=== PATIENT | female | born 1960 | race African-American/Black ===

== ENCOUNTER → 2016-04-03 | Day surgery (SDC) | payer OTHER, MEDICAID ==
[~2016-04-03] MED LIST: ALPR0.5T6 PO; AMIT150T PO; ASEN10TA9 SL; BUDE10.2 IH; CANA300T PO; CELE100C PO; CELE200C PO; CYCL10TA2 PO; DIAZ5TAB4 PO; DULO60CA44 PO; ESCI20TA PO; ESZO3TAB9 PO; FENTANYL PF 100 MCG/2 ML VIAL. IV PRN; FERR-26 PO; FERR325T3 PO; FOLI1TAB16 PO; HYDROMORPHONE 2 MG/ML VIAL. IV PRN; IV RINGERS,LACTATED 1000ML 1,000 ML IV SCH; LIDOCAINE 1% 1 ML SYRINGE. ID PRN; LIDOCAINE 2% PF Vial for OR 5 ML VIAL. ONE; LINA290C PO; LORA1TAB PO; METF500T4 PO; METH2.5T25 PO; MIRT15TA3; MORPHINE SULFATE 2 MG/ML DISP.SYRIN. IV PRN; NAPR1TAB21 PO; OXYC10TA PO; Oxycodone Hcl/Acetaminophen PO; PRAV40TA2 PO; PRED20TA PO; PROPOFOL 20 ML IV ONE; Warfarin Sodium MC; ZOLP10TA4 PO
[2016-04-03 08:58] VITALS: BP 107/77
== END ==
LOC: ENDOS 07:20
PROVIDERS: ATTEND Internal Medicine Gastroenterology
DX: K22.2 Esophageal obstruction (principal); K29.50 Unspecified chronic gastritis without bleeding; K21.9 Gastro-esophageal reflux disease without esophagitis; E66.9 Obesity, unspecified; E78.00 Pure hypercholesterolemia, unspecified; J45.909 Unspecified asthma, uncomplicated; J44.9 Chronic obstructive pulmonary disease, unspecified; M19.90 Unspecified osteoarthritis, unspecified site; E11.9 Type 2 diabetes mellitus without complications; F32.9 Major depressive disorder, single episode, unspecified; F17.200 Nicotine dependence, unspecified, uncomplicated; F41.9 Anxiety disorder, unspecified; Z72.89 Other problems related to lifestyle; Z90.49 Acquired absence of other specified parts of digestive tract
CPT/HCPCS: 43235; 43450; J2704

== ENCOUNTER → 2016-04-13 | Outpatient (CLI) | payer OTHER, MEDICAID ==
[2016-04-03 07:49] VITALS: BP_SYST 107
[2016-04-03 08:58] VITALS: BP_DIAS 77
[~2016-04-13] MED LIST changes: -FENTANYL PF 100 MCG/2 ML VIAL. IV PRN; -HYDROMORPHONE 2 MG/ML VIAL. IV PRN; -IV RINGERS,LACTATED 1000ML 1,000 ML IV SCH; -LIDOCAINE 1% 1 ML SYRINGE. ID PRN; -LIDOCAINE 2% PF Vial for OR 5 ML VIAL. ONE; -MORPHINE SULFATE 2 MG/ML DISP.SYRIN. IV PRN; -PROPOFOL 20 ML IV ONE
--- NOTE | 2016-04-13 15:42 | RAD ---
DATE: 04/03/16 EXAM: DIGITAL SCREEN BILAT W/CAD HISTORY: Routine screening COMPARISON: 04/12/15 This study was interpreted with the benefit of Computerized Aided Detection (CAD). TECHNIQUE: Routine CC and MLO views of both breasts are obtained FINDINGS: The breast tissue density is [B ] . Scattered fibroglandular densities are seen bilaterally. There are no dominant suspicious masses, suspicious microcalcifications or evidence of architectural distortion. Skin and nipples are intact IMPRESSION: Negative exam BI-RADS CATEGORY: 1 NEGATIVE RECOMMENDED FOLLOW-UP: 12M 12 MONTH FOLLOW-UP PQRS compliance statement: Patient information was entered into a reminder system with a target due date for the next mammogram. Mammography is a sensitive method for finding small breast cancers, but it does not detect them all and is not a substitute for careful clinical examination. A negative mammogram does not negate a clinically suspicious finding and should not result in delay in biopsying a clinically suspicious abnormality. "Our facility is accredited by the [employer] Mammography Program."
== END | disposition home or self-care (01) ==
LOC: MAMMO 09:59
PROVIDERS: ATTEND Family Medicine
DX: Z12.31 Encounter for screening mammogram for malignant neoplasm of breast (principal)
CPT/HCPCS: G0202; 77067

== ENCOUNTER → 2016-08-11 | Outpatient (CLI) | payer BC, MEDICAID ==
[2016-04-03 08:58] VITALS: BP 107/77
[~2016-08-11] MED LIST changes: +REGADENOSON 0.4 MG/5 ML DISP.SYRIN. IV ONE
--- NOTE | 2016-08-12 15:34 | RAD ---
APPROVED REPORT Test Type: Pharmacological Stress Nurse/Tech: rachel bhakta Test Indications: CHEST PAIN Cardiac History: HTN, HIGH CHOLESTEROL, SEE EHR Medications: SEE EHR Medical History: DIABETES, SMOKER, SEE EHR Resting ECG: SR Resting Heart Rate: 65 bpm Resting Blood Pressure: 109/55mmHg Pretest Chest Pain: No chest pain Nurse/Tech Notes LUNG SOUNDS CLEAR, S1S2 WNL. Consent: The procedure was explained to the patient in lay terms. Informed consent was witnessed. Freddie eout was entered into [employer]. History and Stress Test performed by OTTO Gabriel, CHRISTIAN (R) (N) Pharm. Details Pharmacologic stress testing was performed using 0.4mg per 5ml of regadenoson given intravenously ove r 7-10 seconds. Stress Symptoms HEADACHE POST EXERCISE Reason for Termination: Infusion complete Max HR: 93 bpm Max Blood Pressure: 125/55mmHg Chest Pain: No. Arrhythmia: No. ST Change: No. INTERPRETATION Stress EKG Conclusion: The resting EKG shows a sinus rhythm with minimal nonspecific ST segment arriola es The stress EKG shows no significant changes from baseline. No EKG evidence of stress-induced ischemia. Imaging Protocol IMAGE PROTOCOL: Rest Tc-99m/stress Tc-99m 1 day Rest: Stress: Viability: Radiopharm.Tc99m [id number] Sestamibi [id number] 31mCi Duration 15min. 10min. Img Date 08/11/2016 08/11/2016 Inj-Img [id number]. 60min. Rest Admin Site:IV - Right AntecubitalAdministrator:RT Karan (R)(N) Stress Admin Site: IV - Right AntecubitalAdministrator: OTTO Gabriel, ARRT (R)(N) STRESS DATA End Diast. Vol.56.0mlAv. Heart Rate91.0bpm End Syst. Vol.3.0mlCO Index BSA0.0L/min Myocardial Gkbs955.0gEject. Yljgbugx45.0% Stress Rates Pk. Fill Rate4.33EDV/secLVtime Pk. Fill 173.73msec Pk. Empty Rate6.38ESV/secLVtime Pk. Eject77.27msec 03/17 Pk. Fill1.10EDV/sec Stress Scores Regional WT0.00Summed WT0.00 Regional WM0.00Summed WM0.00 LV Perfusion The stress scans showed no significant defects. The rest scans showed no significant defects. Nuclear imaging shows no reversible ischemia or infarct. Wall Motion Left ventricular systolic function is normal with an ejection fraction of greater than 70%. LV Perf. Quant 17 Seg. SSS0.00 17 Seg. SRS0.00 17 Seg. SDS0.00 Stress Defect Extent (% LAD)0.00Rest Defect Extent (% LAD)0.00Rev. Defect Extent (% LAD)0.00 Stress Defect Extent (% LCX) 0.00Rest Defect Extent (% LCX)0.00Rev. Defect Extent (% LCX)0.00 Stress Defect Extent (% RCA)0.00Rest Defect Extent (% RCA)0.00Rev. Defect Extent (% RCA)0.00 Stress Defect Extent (% AZAEL)0.00Rest Defect Extent (% AZAEL)0.00Rev. Defect Extent (% AZAEL)0.00 Conclusion 1. No EKG evidence of stress-induced ischemia. 2. Nuclear imaging shows no reversible ischemia or infarct. 3. Normal left ventricular systolic function with an ejection fraction of greater than 70%. 4. Low risk Lexiscan nuclear stress test.
== END | disposition home or self-care (01) ==
LOC: NM 09:44
PROVIDERS: ATTEND Internal Medicine Cardiovascular Disease
DX: R06.00 Dyspnea, unspecified (principal); R07.9 Chest pain, unspecified
CPT/HCPCS: 78452; 93017; 96374; 96375; 96376; A9500; J2785

== ENCOUNTER → 2016-08-20 | Outpatient (CLI) | payer BC, MEDICAID ==
[2016-04-03 08:58] VITALS: BP 107/77
[~2016-08-20] MED LIST changes: -REGADENOSON 0.4 MG/5 ML DISP.SYRIN. IV ONE
--- NOTE | 2016-08-20 12:26 | RAD ---
CT of the paranasal sinuses without contrast, 08/20/2016: History: Chronic sinus pain Noncontrast scans were obtained with multiplanar reconstructions produced. There is a focal density along the anterior inferior aspect of the left maxillary sinus compatible with a retention cyst. No fluid is evident in the paranasal sinuses. The orbital contents are unremarkable. No bony abnormality is detected. IMPRESSION: 1. Small retention cyst along the floor of the left maxillary sinus. 2. No other significant paranasal sinus abnormality is detected. PQRS Compliance Statement: One or more of the following individualized dose reduction techniques were utilized for this examination: 1. Automated exposure control 2. Adjustment of the mA and/or kV according to patient size 3. Use of iterative reconstruction technique
== END | disposition home or self-care (01) ==
LOC: CT 09:58
PROVIDERS: ATTEND Family Medicine
DX: J34.89 Other specified disorders of nose and nasal sinuses (principal)
CPT/HCPCS: 70486

== ENCOUNTER → 2016-09-23 | Outpatient (CLI) | payer BC, MEDICAID ==
[2016-04-03 08:58] VITALS: BP 107/77
[~2016-09-23] MED LIST changes: -ESCI20TA PO; +ESCITALOPRAM OX20 MG PO; +ESZO3TAB28 PO; -ESZO3TAB9 PO
--- NOTE | 2016-09-23 12:21 | RAD ---
MRI of the brain without contrast 09/23/2016 Clinical History: Worsening headaches for 3 months. Technique: Unenhanced T1-weighted sagittal and axial, T2-weighted axial and coronal and FLAIR, gradient echo and diffusion-weighted axial images of the brain were obtained. Findings: No previous imaging studies are available for comparison. There is mild generalized parenchymal atrophy. Patchy and several small scattered areas of increased signal intensity are seen within the periventricular and subcortical white matter of both cerebral hemispheres on the FLAIR and T2-weighted images consistent most likely with areas of mild small vessel ischemic disease. No acute parenchymal abnormality is seen. No extra-axial fluid collection is seen. There is no MRI evidence of acute ischemia/infarction. A 1.6 cm mucous retention cyst is seen involving the left maxillary sinus. Normal flow voids are seen within the major vascular structures surrounding the brain parenchyma. Impression: No acute parenchymal abnormality is seen. Electronically signed by: Stephan Florez MD (09/23/2016 12:17 PM) [email or web address]
== END | disposition home or self-care (01) ==
LOC: MRI 10:06
PROVIDERS: ATTEND Family Medicine
DX: R51 Headache (principal)
CPT/HCPCS: 70551

== ENCOUNTER → 2016-10-08 | Outpatient (CLI) | payer BC, MEDICAID ==
[2016-04-03 08:58] VITALS: BP 107/77
[2016-10-08 12:57] LABS: BASO # 0.1 x10^3/uL (0.0-0.2); BASO % 1 % (0-3); EOS % 1 % (0-3); HEMATOCRIT 43.7 % (36.0-47.0); HEMOGLOBIN 14.2 g/dL (12.0-15.5); LYMPH # 4.6 x10^3/uL (1.0-4.8); LYMPH % 47 % (24-48); MEAN CORPUSCULAR HEMOGLOBIN 28 pg (25-35); MEAN CORPUSCULAR HGB CONC 33 g/dL (31-37); MEAN CORPUSCULAR VOLUME 86 fL (79-100); MONO % 6 % (0-9); NEUT % 46 % (31-73); PLATELET COUNT 259 x10^3/uL (140-400); RED BLOOD COUNT 5.07 x10^6/uL (3.50-5.40); RED CELL DISTRIBUTION WIDTH 13.7 % (11.5-14.5); WHITE BLOOD COUNT 9.9 x10^3/uL (4.0-11.0)
== END | disposition home or self-care (01) ==
LOC: LAB 12:27
PROVIDERS: ATTEND Psychiatry & Neurology Neurology
DX: R51 Headache (principal)
CPT/HCPCS: 36415; 85027; 85651

== ENCOUNTER → 2017-02-12 | Outpatient (CLI) | payer BC, MEDICAID ==
[2016-04-03 08:58] VITALS: BP 107/77
--- NOTE | 2017-02-12 10:48 | KCIC ---
Five-view lumbar spine dated 02/12/2017. No comparison available. Clinical indication: Low back pain and left hip pain for 3 weeks. FINDINGS: AP, lateral, bilateral oblique and coned-down views of lumbosacral sacral junction.. 5 nonrib-bearing vertebral levels. Vertebral body and disc heights are maintained. Sagittal alignment is anatomic. There is mild hypertrophic change of the superior and inferior endplates throughout. Moderate arthrosis lower lumbar apophyseal joints. No pars defects on the oblique views. IMPRESSION: 1. No acute radiographic abnormality. 2. Mild to moderate lower lumbar spondylosis. Electronically signed by: Todd Bishop MD (02/12/2017 10:44 AM) [facility]
== END | disposition home or self-care (01) ==
LOC: KCIC 09:58
PROVIDERS: ATTEND Family Medicine
DX: M54.16 Radiculopathy, lumbar region (principal); M47.896 Other spondylosis, lumbar region; M25.552 Pain in left hip
CPT/HCPCS: 72110

== ENCOUNTER → 2017-04-19 | Outpatient (CLI) | payer BC, MEDICAID | END | disposition home or self-care (01) | LOC: MAMMO 12:37 | DX: Z12.31 Encounter for screening mammogram for malignant neoplasm of breast (principal); N64.89 Other specified disorders of breast | CPT/HCPCS: 77067 ==

== ENCOUNTER → 2017-05-04 | Outpatient (CLI) | payer BC, MEDICAID | END | disposition home or self-care (01) | LOC: MAMMO 09:05 | DX: R92.8 Other abnormal and inconclusive findings on diagnostic imaging of breast (principal); N64.89 Other specified disorders of breast | CPT/HCPCS: 77065 ==

== ENCOUNTER → 2017-06-11 | Outpatient (CLI) | payer BC, MEDICAID ==
[2017-06-11 15:05] LABS: ANION GAP 8 (6-14); BLOOD UREA NITROGEN 12 mg/dL (7-20); CARBON DIOXIDE 31 mmol/L (21-32); CHLORIDE 103 mmol/L (98-107); GFR 69.7; POTASSIUM 3.2 mmol/L (3.5-5.1); SODIUM 142 mmol/L (136-145)
== END | disposition home or self-care (01) ==
LOC: LAB 14:41
DX: G43.019 Migraine without aura, intractable, without status migrainosus (principal)
CPT/HCPCS: 36415; 80051; 82565; 84520

== ENCOUNTER → 2017-06-28 | Outpatient (CLI) | payer BC, MEDICAID ==
[2017-06-28 10:55] LABS: ALBUMIN/GLOBULIN RATIO 0.8 (1.0-1.7); ALK PHOS 106 U/L (46-116); ALT (SGPT) 32 U/L (14-59); ANION GAP 8 (6-14); AST (SGOT) 23 U/L (15-37); BLOOD UREA NITROGEN 16 mg/dL (7-20); BUN/CREATININE RATIO 18 (6-20); CARBON DIOXIDE 32 mmol/L (21-32); CHLORIDE 102 mmol/L (98-107); CREATINE KINASE 128 U/L (26-192); CREATININE 0.9 mg/dL (0.6-1.0); GFR 78.7; GLUCOSE 132 mg/dL (70-99); POTASSIUM 3.3 mmol/L (3.5-5.1); SODIUM 142 mmol/L (136-145); TOTAL BILIRUBIN 0.4 mg/dL (0.2-1.0); TOTAL PROTEIN 8.8 g/dL (6.4-8.2)
[2017-06-28 11:15] LABS: FREE T4 0.85 ng/dL (0.76-1.46)
[2017-06-28 11:15] LABS: THYROID STIM HORMONE (TSH) 0.784 uIU/mL (0.358-3.74)
[2017-06-28 11:47] LABS: VITAMIN-B12 463 pg/mL (247-911)
== END | disposition home or self-care (01) ==
LOC: LAB 10:03
DX: R41.3 Other amnesia (principal); E11.9 Type 2 diabetes mellitus without complications; E78.00 Pure hypercholesterolemia, unspecified; I10 Essential (primary) hypertension
CPT/HCPCS: 36415; 80053; 82306; 82550; 82607; 84439; 84443

== ENCOUNTER → 2017-07-02 | Outpatient (CLI) | payer BC, MEDICAID | END | disposition home or self-care (01) | LOC: RAD 09:16 | DX: M17.0 Bilateral primary osteoarthritis of knee (principal) | CPT/HCPCS: 73565 ==

== ENCOUNTER → 2017-07-09 | Outpatient (CLI) | payer BC, MEDICAID | END | disposition home or self-care (01) | LOC: RT 08:47 | DX: R41.3 Other amnesia (principal); I10 Essential (primary) hypertension; E11.9 Type 2 diabetes mellitus without complications; E78.00 Pure hypercholesterolemia, unspecified | CPT/HCPCS: 95816 ==

== ENCOUNTER → 2017-09-14 | Outpatient (CLI) | payer BC, MEDICAID ==
[2017-09-14 12:40] LABS: ALBUMIN 4.1 g/dL (3.4-5.0); ALK PHOS 107 U/L (46-116); ALT (SGPT) 32 U/L (14-59); ANION GAP 8 (6-14); AST (SGOT) 24 U/L (15-37); BLOOD UREA NITROGEN 12 mg/dL (7-20); BUN/CREATININE RATIO 11 (6-20); CALCIUM 9.3 mg/dL (8.5-10.1); CARBON DIOXIDE 27 mmol/L (21-32); CHLORIDE 100 mmol/L (98-107); CREATININE 1.1 mg/dL (0.6-1.0); GFR 62.4; GLUCOSE 90 mg/dL (70-99); POTASSIUM 3.5 mmol/L (3.5-5.1); SODIUM 135 mmol/L (136-145); TOTAL BILIRUBIN 0.2 mg/dL (0.2-1.0); TOTAL PROTEIN 8.2 g/dL (6.4-8.2)
== END | disposition home or self-care (01) ==
LOC: LAB 11:44
DX: E11.9 Type 2 diabetes mellitus without complications (principal); I10 Essential (primary) hypertension; E78.00 Pure hypercholesterolemia, unspecified; J44.9 Chronic obstructive pulmonary disease, unspecified; Z87.891 Personal history of nicotine dependence
CPT/HCPCS: 36415; 80053; 83036

== ENCOUNTER → 2017-10-29 | Outpatient (CLI) | payer BC, MEDICAID ==
[2016-04-03 08:58] VITALS: BP 107/77
[~2017-10-29] MED LIST changes: -FERR-26 PO; +FERR325T14 PO; -METF500T4 PO; +METF500T5 PO
--- NOTE | 2017-10-29 11:16 | RAD ---
Complete abdominal ultrasound 10/29/2017 9:48 AM Clinical History: Generalized abdominal pain. Left upper quadrant pain. Technique: Ultrasound examination of the abdomen was performed, and multiple static images were submitted for review. Comparison: None available Findings: The pancreas is not visualized secondary to overlying gas filled bowel.. The visualized aorta and IVC are unremarkable. Patient is status post cholecystectomy. The common bile duct measures 6 cm in diameter which is within normal limits given prior removal of the gallbladder. The liver is normal in size measuring approximately 16 cm longitudinally. The liver is normal in echotexture. No intrahepatic biliary ductal dilatation is seen. No focal hepatic lesions are identified. Spleen is not visualized secondary to overlying gas filled bowel . The bilateral kidneys are normal in appearance without evidence of obstructive uropathy, nephrolithiasis, or focal renal lesion. Right kidney measures 12.7 cm in length. Left kidney measures 12.2 cm in length. Impression: No sonographic evidence of acute intra-abdominal abnormality Electronically signed by: Luis Fernando Calvert MD (10/29/2017 11:12 AM) [id number]
== END | disposition home or self-care (01) ==
LOC: US 10:22
PROVIDERS: ATTEND Family Medicine
DX: R10.84 Generalized abdominal pain (principal); R10.12 Left upper quadrant pain; I10 Essential (primary) hypertension; E11.9 Type 2 diabetes mellitus without complications; E78.00 Pure hypercholesterolemia, unspecified; J44.9 Chronic obstructive pulmonary disease, unspecified; K21.9 Gastro-esophageal reflux disease without esophagitis; Z90.49 Acquired absence of other specified parts of digestive tract; Z87.891 Personal history of nicotine dependence
CPT/HCPCS: 76700

== ENCOUNTER → 2018-01-28 | Outpatient (CLI) | payer BC, MEDICAID ==
[2016-04-03 08:58] VITALS: BP 107/77
[~2018-01-28] MED LIST changes: +METF500T16 PO; -METF500T5 PO
--- NOTE | 2018-02-02 13:51 | EEG ---
DATE OF SERVICE: 01/28/2018 EEG NUMBER: [id number] OBJECTIVE: This is a 57-year-old male patient with complaints of memory loss. EEG was requested to evaluate cerebral activity and help rule out seizure. METHODS: Twenty electrodes were applied according to the international 10-20 electrode placement system. EKG monitoring, hyperventilation, intermittent photic stimulation, monopolar and bipolar montages are routinely utilized. The record was obtained on a digital system with video monitoring. FINDINGS: 1. Background: The patient was recorded in the awake, drowsy and sleep states. The overall background amplitude is 10-30 microvolts. A posterior dominant rhythm of 8-9 Hz is observed. 2. Abnormalities: No specific epileptiform discharge or electrographic seizure is seen. No focal or diffuse slowing. 3. Activation: Hyperventilation was performed with fair efforts and normal response. Intermittent photic stimulation was performed with photic driving. IMPRESSION: This EEG is a normal study for the awake, drowsy and sleep states. No focal, lateralizing, specific epileptiform discharge or electrographic seizure is seen. JYOTSNA OTT MD DR: MILTON/delvin JOB#: [id number] / [id number] PHIL
== END | disposition home or self-care (01) ==
LOC: RT 10:51
PROVIDERS: ATTEND Psychiatry & Neurology Neurology
DX: R41.3 Other amnesia (principal)
CPT/HCPCS: 95816

== ENCOUNTER → 2018-02-21 | Outpatient (CLI) | payer BC, MEDICAID ==
[2016-04-03 08:58] VITALS: BP 107/77
--- NOTE | 2018-02-21 17:21 | RAD ---
MRI of the lumbar spine without contrast 02/21/2018 CLINICAL HISTORY: Chronic low back pain which radiates down the left leg. TECHNIQUE: Unenhanced T1-weighted and T2-weighted sagittal and axial and inversion recovery sagittal images of the lumbar spine were obtained. FINDINGS: Minimal S-shaped curvature of the thoracolumbar spine is seen. Degenerative signal changes are seen involving the L2-3, L4-5 and L5-S1 discs. The marrow signal of the visualized bony structures is within normal limits. The conus medullaris is normal morphology, position, and signal characteristics. The L1-2 disc space is within normal limits. At the L2-3, L3-4, L4-5 and L5-S1 disc spaces there are minimal to mild generalized disc bulges. Degenerative changes are seen involving the facet joints bilaterally. There is mild ligamentum flavum hypertrophy bilaterally. Small facet joint effusions are seen bilaterally at L4-5. These findings when combined do not result in significant central spinal canal or neural foraminal stenosis. IMPRESSION: The changes of degenerative disc disease are seen involving the mid and lower lumbar spine. These findings do not result in significant central spinal canal or neural foraminal stenosis at any level. Electronically signed by: Stephan Florez MD (02/21/2018 5:17 PM) [facility]
== END | disposition home or self-care (01) ==
LOC: MRI 09:42
PROVIDERS: ATTEND Family Medicine
DX: M51.36 Other intervertebral disc degeneration, lumbar region (principal); M25.48 Effusion, other site
CPT/HCPCS: 72148

== ENCOUNTER → 2018-03-25 | Outpatient (CLI) | payer BC, MEDICAID ==
[2016-04-03 08:58] VITALS: BP 107/77
[~2018-03-25] MED LIST changes: +ALBU2.5V8 IH; +ASPI81TA50 PO; +BREO ELLIPTA 11 EACH IH; -DULO60CA44 PO; +DULO60CA45 PO; +ERGO500027 PO; +GABA600T7 PO; +HYDR-2145 PO; -LINA290C PO; +LINZESS290 MCG PO; +MELO15TA23 PO; +OMEP40CA5 PO; +POTA10TA12 PO; +TOPI25TA7 PO
--- NOTE | 2018-03-25 08:54 | RAD ---
Bilateral hands, 6 views, 03/25/2018: HISTORY: Polyarthralgia On the left there are mild degenerative changes at scattered interphalangeal joints, the first MCP joint and the radiocarpal articulation. No bone erosions are evident. On the right there are more extensive degenerative changes at the interphalangeal joints, most severe at the PIP joint of the index finger and the DIP joints of the middle and ring fingers. There is a lesser degree of degenerative change at the other interphalangeal joints, the first MCP joint and the first CMC joint. No fracture or subluxation is evident. IMPRESSION: Moderate scattered degenerative changes bilaterally, worst at several left interphalangeal joints as described above. Electronically signed by: Ta Rehman MD (03/25/2018 8:50 AM) [facility]
== END | disposition home or self-care (01) ==
LOC: RAD 07:53
PROVIDERS: ATTEND Family Medicine
DX: M19.042 Primary osteoarthritis, left hand (principal); M19.041 Primary osteoarthritis, right hand
CPT/HCPCS: 73130

== ENCOUNTER → 2018-03-25 | Outpatient (CLI) | payer BC, MEDICAID ==
[2016-04-03 08:58] VITALS: BP 107/77
--- NOTE | 2018-03-28 14:12 | RAD ---
Three-phase bone scan, 03/25/2018: History: Left knee pain after arthroplasty Imaging of both knees was performed following an IV bolus injection of 25.0 mCi of technetium 99m MDP. The dynamic flow study shows symmetric vascularity about the knees. The blood pool image demonstrates slightly increased activity along the medial aspect of the tibial component of the patient's known left knee prosthesis. The delayed images demonstrate increased periprosthetic activity along both sides of the left knee prosthesis, greatest along the medial margin of the tibial component. Mildly increased activity at the right knee joint is compatible with arthritis. IMPRESSION: 1. Increased periprosthetic activity related to the patient's known left knee prosthesis, most prominent along the medial margin of the tibial component of the prosthesis. The findings suggest loosening, although infection cannot be excluded. 2. Mildly increased activity at the right knee joint compatible with arthritis.
== END | disposition home or self-care (01) ==
LOC: NM 08:14
PROVIDERS: ATTEND Orthopaedic Surgery
DX: Z47.1 Aftercare following joint replacement surgery (principal); J44.9 Chronic obstructive pulmonary disease, unspecified; E11.9 Type 2 diabetes mellitus without complications; Z96.652 Presence of left artificial knee joint; Z79.01 Long term (current) use of anticoagulants; Z87.891 Personal history of nicotine dependence
CPT/HCPCS: 78315; 96374; A9503

== ENCOUNTER → 2018-04-14 | Outpatient (CLI) | payer BC, MEDICAID ==
[2016-04-03 08:58] VITALS: BP 107/77
[~2018-04-14] MED LIST changes: -ALBU2.5V8 IH; -ASPI81TA50 PO; -BREO ELLIPTA 11 EACH IH; +DULO60CA44 PO; -DULO60CA45 PO; -ERGO500027 PO; -GABA600T7 PO; -HYDR-2145 PO; -MELO15TA23 PO; -OMEP40CA5 PO; -POTA10TA12 PO; -TOPI25TA7 PO
== END | disposition home or self-care (01) ==
LOC: LAB 10:39
PROVIDERS: ATTEND Orthopaedic Surgery
DX: Z47.89 Encounter for other orthopedic aftercare (principal); Z96.652 Presence of left artificial knee joint
CPT/HCPCS: 36415; 85651; 86140

== ENCOUNTER → 2018-04-28 | Outpatient (CLI) | payer BC, MEDICAID ==
[2016-04-03 08:58] VITALS: BP 107/77
--- NOTE | 2018-04-28 12:45 | RAD ---
DATE: 04/28/2018 EXAM: MAMMO VANDANA SCREENING BILATERAL HISTORY: Routine screening COMPARISON: 05/04/2017, 04/19/2017 This study was interpreted with the benefit of Computerized Aided Detection (CAD). Breast Density: SCATTERED The breast parenchyma shows scattered fibroglandular densities. Breast parenchyma level B. FINDINGS: 2-D and 3-D tomosynthesis imaging was performed in CC and MLO projections. No new or enlarging breast densities are seen. No suspicious microcalcifications are evident. IMPRESSION: There is no mammographic evidence of malignancy in the breast. BI-RADS CATEGORY: 2 BENIGN FINDING(S) RECOMMENDED FOLLOW-UP: 12M 12 MONTH FOLLOW-UP PQRS compliance statement: Patient information was entered into a reminder system with a target due date for the next mammogram. Mammography is a sensitive method for finding small breast cancers, but it does not detect them all and is not a substitute for careful clinical examination. A negative mammogram does not negate a clinically suspicious finding and should not result in delay in biopsying a clinically suspicious abnormality. "Our facility is accredited by the [employer] Mammography Program."
== END | disposition home or self-care (01) ==
LOC: MAMMO 09:51
PROVIDERS: ATTEND Family Medicine
DX: Z12.31 Encounter for screening mammogram for malignant neoplasm of breast (principal)
CPT/HCPCS: 77063; 77067

== ENCOUNTER → 2018-05-11 | Outpatient (CLI) | payer BC, MEDICAID ==
[2016-04-03 08:58] VITALS: BP 107/77
[~2018-05-11] MED LIST changes: +ALBU2.5V8 IH; +ASPI81TA50 PO; +BREO ELLIPTA 11 EACH IH; +ERGO500027 PO; +GABA600T7 PO; +HYDR-2145 PO; +MELO15TA23 PO; +OMEP40CA5 PO; +POTA10TA12 PO; +TOPI25TA7 PO
--- NOTE | 2018-05-11 12:18 | RAD ---
EXAM: Chest, 2 views. HISTORY: Cough. COMPARISON: 05/07/2015 FINDINGS: 2 views of the chest are obtained. There is no infiltrate, pleural effusion or pneumothorax. The heart is normal in size. There are coarse likely chronic increased interstitial markings. IMPRESSION: No acute pulmonary finding. Electronically signed by: June Gary MD (05/11/2018 12:15 PM) [place] [id number]
== END | disposition home or self-care (01) ==
LOC: RAD 11:48
PROVIDERS: ATTEND Family Medicine
DX: R05 Cough (principal)
CPT/HCPCS: 71046

== ENCOUNTER → 2018-11-03 | Outpatient (CLI) | payer BC, MEDICAID ==
[2016-04-03 08:58] VITALS: BP 107/77
[~2018-11-03] MED LIST changes: -DULO60CA44 PO; +DULO60CA45 PO
[2018-11-03 15:12] LABS: CREATININE 0.9 mg/dL (0.6-1.0); GFR 78.1
== END | disposition home or self-care (01) ==
LOC: LAB 14:11
PROVIDERS: ATTEND Psychiatry & Neurology Neurology
DX: G43.009 Migraine without aura, not intractable, without status migrainosus (principal)
CPT/HCPCS: 36415; 80051; 82565; 84520

== ENCOUNTER → 2018-12-08 | Day surgery (SDC) | payer BC, MEDICAID ==
[2018-12-07 09:38] VITALS: BP 113/59
[~2018-12-08] MED LIST changes: +IV RINGERS,LACTATED 1000ML 1,000 ML IV SCH; +PRIM250T28 PO; +PROPOFOL 20 ML IV ONE
== END ==
LOC: ENDOS 07:40
PROVIDERS: ATTEND Internal Medicine Gastroenterology
DX: K22.2 Esophageal obstruction (principal); K21.9 Gastro-esophageal reflux disease without esophagitis; F32.9 Major depressive disorder, single episode, unspecified; E11.9 Type 2 diabetes mellitus without complications; I10 Essential (primary) hypertension; E78.5 Hyperlipidemia, unspecified; J43.9 Emphysema, unspecified; F15.90 Other stimulant use, unspecified, uncomplicated; F41.9 Anxiety disorder, unspecified; Z91.040 Latex allergy status; Z87.39 Personal history of other diseases of the musculoskeletal system and connective tissue; Z72.89 Other problems related to lifestyle; Z87.891 Personal history of nicotine dependence; Z79.82 Long term (current) use of aspirin; Z98.890 Other specified postprocedural states; Z90.49 Acquired absence of other specified parts of digestive tract; Z96.60 Presence of unspecified orthopedic joint implant; Z79.84 Long term (current) use of oral hypoglycemic drugs
CPT/HCPCS: 43235; 82962; J2704

== ENCOUNTER → 2019-01-11 | Outpatient (CLI) | payer BC, MEDICAID ==
[2018-12-07 09:38] VITALS: BP 113/59
[~2019-01-11] MED LIST changes: +CONTRAST GIVEN. MC PRN; +IOHEXOL 240 MG/ML 50ML VIAL. PO ONE; +IOHEXOL 300 MG/ML 100ML VIAL. IV ONE; -IV RINGERS,LACTATED 1000ML 1,000 ML IV SCH; +OMEP40CA45 PO; -OMEP40CA5 PO; -PROPOFOL 20 ML IV ONE
--- NOTE | 2019-01-11 12:25 | RAD ---
CT PELVIS W/CONTRAST Indication: Left inguinal pain for 3 months Technique: Postcontrast CT imaging was performed of the pelvis, multiplanar reconstruction images submitted. Oral contrast was also given. One or more of the following individualized dose reduction techniques were utilized for this examination: 1. Automated exposure control 2. Adjustment of the mA and/or kV according to patient size 3. Use of iterative reconstruction technique. Comparison: None Findings: No clearly defined hernia is identified by this exam. Visualized bowel is not significantly dilated. No free fluid or free air is identified of the visualized pelvis. There is greater degree of retained stool the rectum and distal sigmoid colon. There are small bilateral inguinal nodes. There is mild osteoarthritic change of the bilateral hips. IMPRESSION: 1. No hernia is identified by this exam. 2. There is retained stool in segments of colon. Electronically signed by: Mauro Valencia MD (01/11/2019 12:22 PM) [facility]
== END | disposition home or self-care (01) ==
LOC: CT 10:08
PROVIDERS: ATTEND Family Medicine
DX: K59.09 Other constipation (principal)
CPT/HCPCS: 72193; Q9966; Q9967

== ENCOUNTER → 2019-01-26 | Outpatient (CLI) | payer BC, MEDICAID ==
[2018-12-07 09:38] VITALS: BP 113/59
[~2019-01-26] MED LIST changes: -ALBU2.5V8 IH; -CONTRAST GIVEN. MC PRN; -IOHEXOL 240 MG/ML 50ML VIAL. PO ONE; -IOHEXOL 300 MG/ML 100ML VIAL. IV ONE; +PROVENTIL HFA6.7 GM IH
--- NOTE | 2019-01-26 12:49 | RAD ---
MR of the left hip HISTORY: Worsening left hip pain over the last year. TECHNIQUE: Routine multiplanar sequences are obtained. FINDINGS: No evidence of acute fracture. No aggressive bone destruction. No evidence of femoral head osteonecrosis. No acute marrow edema. No significant joint effusion. Mild signal seen at the anterior labrum on a single sagittal slice, series 9, image 13, not confirmed in other imaging planes, but raising the question of a possible very small tear. No advanced DJD. Gluteus minimus and medius tendons are intact. Mild soft tissue edema adjacent to the greater trochanter. Hamstring tendon intact. Iliopsoas tendon intact. Rectus femoris tendon intact. IMPRESSION: 1. Single slice defect at the anterior labrum, at least raising the question of a tear but if so it is very small. 2. Mild soft tissue edema lateral to the greater trochanter, could indicate mild bursitis. Electronically signed by: Todd Mejia MD (01/26/2019 12:46 PM) [facility] [place]
== END | disposition home or self-care (01) ==
LOC: MRI 08:57
PROVIDERS: ATTEND Family Medicine
DX: M25.552 Pain in left hip (principal)
CPT/HCPCS: 73721

== ENCOUNTER → 2019-03-03 | Outpatient (CLI) | payer BC, MEDICAID ==
[2018-12-07 09:38] VITALS: BP 113/59
[~2019-03-03] MED LIST changes: +BUPIVACAINE MPF 0.5% 10 ML VIAL. IJ ONE; +BUPIVACAINE MPF 0.5% 30 ML VIAL. IJ ONE; +CONTRAST GIVEN. MC PRN; +IOHEXOL 300 MG/ML 50 ML VIAL. INT ART ONE; -POTA10TA12 PO; +POTASSIUM CHLO10 ME1 PO; +methylPREDNISolone ACETATE 40 MG/ML VIAL. INT ART ONE
--- NOTE | 2019-03-03 16:27 | RAD ---
FLUOROSCOPIC GUIDED LEFT SI JOINT INJECTION. Clinical indications: Chronic left SI joint pain. PROCEDURE: The procedure and possible complications including bleeding and infection were explained. The patient provided both verbal and written consent. A timeout was performed which confirmed the name of the patient and date of and the type of procedure and the side of the procedure. The patient bracelet was checked. Allergies to medications were reviewed. The patient was placed in the prone position on the fluoroscopic table. Using fluoroscopic guidance, a small skin jonathan was made overlying the inferior aspect of the left SI joint. This area was prepped and draped in the usual sterile fashion with Betadine. 4 cc of 1 percent lidocaine was utilized for local anesthesia. Using sterile technique and fluoroscopic guidance, 22-gauge spinal needle was directed down into the left SI joint through a posterior approach. Following this, a solution containing 1 cc of 0.25 percent bupivacaine and 1 cc (40 mg) of Depo-Medrol was injected intra-articularly. Needle was removed and hemostasis was deemed adequate. The patient tolerated the procedure well without complication. Follow-up will be with the patient's physician. Total fluoroscopic time: 1.7 minutes. Total fluoroscopic spot views:1. IMPRESSION: Fluoroscopic guided left SI joint injection was performed without complication. Electronically signed by: Vinay Diaz MD (03/03/2019 4:24 PM) [facility]
== END ==
LOC: RAD 09:12
PROVIDERS: ATTEND Otolaryngology
DX: M46.1 Sacroiliitis, not elsewhere classified (principal)
CPT/HCPCS: G0260; J1030; 20610; 77002; 27096

== ENCOUNTER → 2019-05-17 | Outpatient (CLI) | payer MEDICARE, MEDICAID ==
[2018-12-07 09:38] VITALS: BP 113/59
[~2019-05-17] MED LIST changes: -BUPIVACAINE MPF 0.5% 10 ML VIAL. IJ ONE; -BUPIVACAINE MPF 0.5% 30 ML VIAL. IJ ONE; -CONTRAST GIVEN. MC PRN; -IOHEXOL 300 MG/ML 50 ML VIAL. INT ART ONE; -methylPREDNISolone ACETATE 40 MG/ML VIAL. INT ART ONE
--- NOTE | 2019-05-17 11:52 | RAD ---
History: Routine screening. Technique: Bilateral digital mammographic routine views were obtained with 2-D and 3-D technique including use of CAD - computer aided detection. Comparison: 04/28/2018, 04/19/2017.. Findings: Breast Tissue Density B :The breast tissue is composed of mixed fatty and fibroglandular tissue. There are no suspicious masses, microcalcifications or areas of architectural distortion. Impression: Negative mammogram. BI-RADS Category 1: Negative. Normal interval followup. A mammogram does not have 100% sensitivity and therefore a negative imaging study should not delay further work up of a suspicious abnormality. The patient will receive a letter with the results in the mail. Patient information is entered into the reminder system with a target due date for the next screening mammogram. The patient will receive a reminder. "Our facility is accredited by the [employer] Mammography Program." BI-RADS 1 -- negative findings (within normal)
== END ==
LOC: MAMMO 08:12
PROVIDERS: ATTEND Family Medicine
DX: Z12.31 Encounter for screening mammogram for malignant neoplasm of breast (principal)
CPT/HCPCS: 77063; 77067

== ENCOUNTER → 2020-02-27 | Outpatient (CLI) | payer BC, MEDICAID ==
[2018-12-07 09:38] VITALS: BP 113/59
--- NOTE | 2020-02-27 13:22 | RAD ---
EXAM: Nuclear gastric emptying scan. HISTORY: Nausea and vomiting. Pain. COMPARISON: None. TECHNIQUE: Serial static images were obtained over the stomach following oral administration of 2 mCi 99m-Tc sulfur colloid. FINDINGS: The stomach empties into the small bowel without evidence of reflux in the area of the esop hagus. There is 42 percent retained tracer activity within stomach at one hour (normal 34.8 percent t o 91 percent). There is 22 percent retained tracer activity within stomach at 2 hours (normal 2.7 per cent to 60 percent). There is 5 percent retained tracer activity within stomach at 3 hours (normal 0. 5 percent to 28 percent). There is 0 percent retained tracer activity within stomach at 4 hours (norm al 0.0 percent to 10 percent). The estimated time for half emptying of gastric contents, i.e. 'gastric emptying time' is 56 minutes (normal is 66 +/- 22 minutes). IMPRESSION: Normal gastric emptying scan. Electronically signed by: June Gary MD (02/27/2020 1:20 PM) [id number]
== END ==
LOC: NM 08:50
PROVIDERS: ATTEND Internal Medicine Gastroenterology
DX: R10.84 Generalized abdominal pain (principal)
CPT/HCPCS: 78264; A9541

== ENCOUNTER → 2020-03-07 | Outpatient (CLI) | payer BC, MEDICAID ==
[2018-12-07 09:38] VITALS: BP 113/59
[~2020-03-07] MED LIST changes: +CONTRAST GIVEN. MC PRN; +IOHEXOL 300 MG/ML 100ML VIAL. IV ONE
[2020-03-07 10:01] LABS: CREATININE 0.9 mg/dL (0.6-1.0); GFR 77.8
--- NOTE | 2020-03-07 10:44 | RAD ---
PQRS Compliance Statement: One or more of the following individualized dose reduction techniques were utilized for this examinat ion: 1. Automated exposure control 2. Adjustment of the mA and/or kV according to patient size 3. Use of iterative reconstruction technique CT head with contrast 03/07/2020 10:29 AM INDICATION: Nausea and vomiting COMPARISON: None available TECHNIQUE: Multiple axial CT images of the head were obtained from skull base through the vertex with intravenous contrast. FINDINGS: Head: Ventricles, sulci and basal cisterns are within normal limits. There is no hydrocephalus. Oates-white matter differentiation is normal. Limited evaluation for intracranial hemorrhage. There is no mass, m ass effect or midline shift. Posterior fossa is normal in appearance. No suspicious intracranial enha ncement. Visualized portions of the orbits are normal. Paranasal sinuses are well aerated. Mastoid air cells a re well aerated. Scalp and calvaria are normal. IMPRESSION: Limited evaluation for intracranial hemorrhage Roel contrast administration. No suspicious enhancement is identified. Electronically signed by: Alla Christy MD (03/07/2020 10:42 AM) [facility]
== END ==
LOC: CT 10:32
PROVIDERS: ATTEND Internal Medicine Gastroenterology
DX: I62.9 Nontraumatic intracranial hemorrhage, unspecified (principal); R11.2 Nausea with vomiting, unspecified
CPT/HCPCS: 36415; 70460; 82565; 84520; Q9967

== ENCOUNTER → 2020-04-08 | Outpatient (CLI) | payer MEDICARE, MEDICAID ==
[2018-12-07 09:38] VITALS: BP 113/59
[~2020-04-08] MED LIST changes: -CONTRAST GIVEN. MC PRN; +CRESTOR5 MG PO; -IOHEXOL 300 MG/ML 100ML VIAL. IV ONE; +RANO500T2 PO; +SECU150S SQ
== END ==
LOC: LAB 12:31
PROVIDERS: ATTEND Internal Medicine Cardiovascular Disease
DX: Z01.812 Encounter for preprocedural laboratory examination (principal); R07.9 Chest pain, unspecified; R06.00 Dyspnea, unspecified; Z20.828 Contact with and (suspected) exposure to other viral communicable diseases
CPT/HCPCS: U0003

== ENCOUNTER → 2020-04-11 | Outpatient (CLI) | payer MEDICARE, MEDICAID ==
[2020-04-11] VITALS (12 sets, daily range): BP systolic 91–109; BP diastolic 43–61
[~2020-04-11] VITALS: Ht 149.9 cm; Wt 72.6 kg
[~2020-04-11] MED LIST changes: +HEPARIN for IV BOLUS 10,000 UNIT/10 ML VIAL. IART ONE; +HEPARIN for IV BOLUS 10,000 UNIT/10 ML VIAL. ONE; +IODIXANOL 320 MG/ML 100 ML VIAL. IART ONE; +IODIXANOL 320 MG/ML 100 ML VIAL. ONE; +LIDOCAINE 1% Multi-Dose 20 ML VIAL. INJ ONE; +LIDOCAINE 1% Multi-Dose 20 ML VIAL. ONE; +LIDOCAINE 1% PF 2 ML VIAL. ONE; +MIDAZOLAM HCL/PF 5 MG/5 ML VIAL. IV ONE; +MIDAZOLAM HCL/PF 5 MG/5 ML VIAL. ONE; +NITROGLYCERIN 200 MCG/2 ML SYRINGE FOR CATH/VASC LAB. IART ONE; +NITROGLYCERIN 200 MCG/2 ML SYRINGE FOR CATH/VASC LAB. ONE; +VERAPAMIL 5 MG/2 ML VIAL. IART ONE; +VERAPAMIL 5 MG/2 ML VIAL. ONE; +fentaNYL PF VIAL 100 MCG/2 ML VIAL IV ONE; +fentaNYL PF VIAL 100 MCG/2 ML VIAL ONE
[2020-04-11 09:21] LABS: HEMATOCRIT 39.2 % (36.0-47.0); HEMOGLOBIN 12.5 g/dL (12.0-15.5); RED BLOOD COUNT 4.59 x10^6/uL (3.50-5.40); WHITE BLOOD COUNT 6.7 x10^3/uL (4.0-11.0)
[2020-04-11 09:33] LABS: PROTHROMBIN TIME PATIENT 13.6 SEC (11.7-14.0)
[2020-04-11 09:57] LABS: CALCIUM 8.5 mg/dL (8.5-10.1); CREATININE 0.8 mg/dL (0.6-1.0); GFR 89.1; POTASSIUM 4.1 mmol/L (3.5-5.1)
--- NOTE | 2020-04-11 10:39 | PDOC ---
MODERATE SEDATION ASSESSMENT RISKS/ALTERNATIVES Risks/Alternatives Risks and alternatives of this type of sedation and procedure discussed with: RISK/ALTERNATIVES: Patient H & P ON CHART H & P H & P on chart and reviewed for co-morbid conditions and appropriate labs. H&P ON CHART: Yes STATUS PREG STATUS ASSESSED: N/A MEDS/ALLERGIES REVIEWED Meds/Allergies Reviewed Medications and Allergies including time and route of recently administered narcotics and sedatives. MEDS/ALLERGIES REVIEWED: Yes ASA RATING ASA RATING: II AIRWAY ASSESSMENT Airway Assessment Airway patency, oral function limitations, presence of caps, crowns, dentures, partials, and ability to extend neck assessed. AIRWAY ASSESSMENT: Yes MALLAMPATI SCORE MALLAMPATI SCORE: II PRE-SEDATION ASSESSMENT PRE-SEDATION ASSESSMENT: Yes WINNIE CASON MD Apr 11, 2020 10:39
--- NOTE | 2020-04-11 11:55 | CARD ---
MR#: [id number] Date of Study: 04/11/2020 Ordering Physician: WINNIE HILL, Referring Physician: WINNIE HILL, Tech: Stephany Olmedo RT (R) APPROVED REPORT Technologist: Stephany Olmedo RT (R) Nurse: Stephanie Beavers R.N. Procedure(s) performed: FL TIME: 4.0 MINS DOSE: 52 GYCM2 CONTRAST: 90 ML MODERATE SEDATION: 40 mins LHC, coronary angiography, Left ventriculogram CS Clinical Frailty Scale [facility] [place] Clinical Frailty Scale: Mildly Frail Heart Failure Heart Failure: Yes If Yes, Newly Diagnosed: No If Yes, HF Type: Diastolic If Yes, NYHA Class: Class II CASE TECHNIQUE IV conscious sedation was used throughout procedure with appropriate monitoring and was performed in the presence of a registered nurse who was an independent trained observer other than the physician p erforming the procedure. During this case, Fluoroscopy and low osmolar contrast were used for imaging . Specimen(s) Removed: N/A Estimated Blood loss: 20 cc's. PROCEDURE NARRATIVE Clinical information: 59-year-old woman who presented to the office with exertional dyspnea, unstable anginal symptoms in t he setting of diabetes and a thorough GI evaluation for persistent nausea is planned for a coronary a ngiography due to high pretest probability for coronary disease as a source of her symptoms. Procedure details: After appropriate informed consent the right groin was prepped and draped in usual sterile fashion an d a 6 Niuean introducer sheath was placed via the modified Seldinger technique. Diagnostic angiograp hy was performed with a 6 Niuean JL4, JR4 and pigtail catheters. Findings: Aorta 90/60 LVEDP 8 mmHg Left ventriculogram: EF 55%, no significant mitral or aortic insufficiency Coronary angiography: Left main is a large-caliber vessel with normal angiographic appearance LAD is a moderate caliber vessel with mild luminary irregularities D1 is a small caliber vessel with mild luminal irregularities Left circumflex is a moderate to large caliber nondominant vessel with a proximal 20% stenosis. OM1 is a moderate caliber vessel with mild luminal irregularities RCA is a moderate to large caliber dominant vessel with a distal 30% stenosis. There was mild cathete r induced spasm in the proximal segment, which resolved with nitroglycerin administration. At case completion the right groin sheath was removed and hemostasis was achieved with an Angio-Seal device. There were no acute complications. Conclusion 1. Normal left-sided filling pressures 2. Normal LV systolic function, EF 55% 3. No significant obstructive coronary artery disease. Recommendations 1. Etiology of the patient's unstable anginal symptoms may be related to microvascular disease or no ncardiac pathology. At this present time we will plan for trial of ranolazine therapy and determine if this helps improve her symptoms. Signed by : Winnie Hill, Electronically Approved : 04/11/2020 11:55:26
--- NOTE | 2020-04-11 14:15 | NUR ---
education reviewed with pt. Pt ambulated and tolerated PO. Pt transferred to cardiac center for Echocardiogram
--- NOTE | 2020-04-11 16:33 | CARD ---
MR#: [id number] Date of Study: 04/11/2020 Ordering Physician: WINNIE CASON, Referring Physician: WINNIE CASON, Tech: Jane Trinidad [facility] APPROVED REPORT EXAM: Two-dimensional and M-mode echocardiogram with Doppler and color Doppler. Other Information Quality : Good INDICATION Dyspnea Chest Pain 2D DIMENSIONS Left Atrium(2D)2.8 (1.6-4.0cm)IVSd0.8 (0.7-1.1cm) Aortic Root(2D)2.3 (2.0-3.7cm)LVDd4.4 (3.9-5.9cm) LVOT Diameter1.9 (1.8-2.4cm)PWd0.8 (0.7-1.1cm) LVDs2.1 (2.5-4.0cm)FS (%) 30.0 % SV74.4 mlLVEF(%)60.0 (>50%) Aortic Valve AoV Peak Chris.182.5cm/sAoV VTI33.6cm AO Peak GR.13.3mmHgLVOT Peak Chris.155.3cm/s AO Mean GR.6mmHgAVA (VMAX)2.51cm2 DEMETRI (VTI)2.70cm2 Mitral Valve MV E Yrewijio397.6cm/sMV DECEL HIJW691gu MV A Jnziqpcr20.2cm/sE/A Ratio1.2 Tricuspid Valve TR P. Wajtzvsl491vm/sRAP TKMYYBWU6fvNw TR Peak Gr.32rhOqTNCZ24flLe Pulmonary Vein S1 Lddhwaav05.6cm/sD2 Cgeewoih01.5cm/s LEFT VENTRICLE The left ventricle is normal size. There is normal left ventricular wall thickness. The left ventricu lar systolic function is normal and the ejection fraction is within normal range. The Ejection Fracti on is 55-60%. There is normal LV segmental wall motion. Transmitral Doppler flow pattern is Grade I-a bnormal relaxation pattern. RIGHT VENTRICLE The right ventricle is normal size. The right ventricular systolic function is normal. ATRIA The left atrium size is normal. The right atrium size is normal. The interatrial septum is intact wit h no evidence for an atrial septal defect or patent foramen ovale as noted on 2-D or Doppler imaging. AORTIC VALVE The aortic valve is calcified but opens well. Doppler and Color Flow revealed no significant aortic r egurgitation. There is no significant aortic valvular stenosis. MITRAL VALVE The mitral valve is calcified but opens well. There is no evidence of mitral valve prolapse. There is no mitral valve stenosis. Doppler and Color-flow revealed trace mitral regurgitation. TRICUSPID VALVE The tricuspid valve is normal in structure and function. Doppler and Color Flow revealed trace tricus pid regurgitation. The PA pressure was estimated at 46 mmHg. There is no tricuspid valve stenosis. PULMONIC VALVE The pulmonary valve is normal in structure and function. Doppler and Color Flow revealed trace pulmon ic valvular regurgitation. There is no pulmonic valvular stenosis. GREAT VESSELS The aortic root is normal in size. The ascending aorta is normal in size. The IVC is normal in size a nd collapses >50% with inspiration. PERICARDIAL EFFUSION There is no evidence of significant pericardial effusion. Critical Notification Critical Value: No <Conclusion> The left ventricle is normal size. The left ventricular systolic function is normal and the ejection fraction is within normal range. The Ejection Fraction is 55-60%. Doppler and Color Flow revealed no significant aortic regurgitation. There is no significant aortic valvular stenosis. Doppler and Color-flow revealed trace mitral regurgitation. Doppler and Color Flow revealed trace tricuspid regurgitation. The PA pressure was estimated at 46 mmHg. Signed by : Mauricio Butcher MD Electronically Approved : 04/11/2020 16:32:38
== END | disposition home or self-care (01) ==
LOC: CCL 08:32
PROVIDERS: ATTEND Internal Medicine Cardiovascular Disease
DX: I20.0 Unstable angina (principal); R06.00 Dyspnea, unspecified; R07.9 Chest pain, unspecified; I10 Essential (primary) hypertension; E78.00 Pure hypercholesterolemia, unspecified; J44.9 Chronic obstructive pulmonary disease, unspecified; K21.9 Gastro-esophageal reflux disease without esophagitis; M19.90 Unspecified osteoarthritis, unspecified site; E11.9 Type 2 diabetes mellitus without complications; F41.9 Anxiety disorder, unspecified; F32.9 Major depressive disorder, single episode, unspecified; E66.9 Obesity, unspecified; F17.210 Nicotine dependence, cigarettes, uncomplicated; Z79.82 Long term (current) use of aspirin; Z79.84 Long term (current) use of oral hypoglycemic drugs; Z79.899 Other long term (current) drug therapy; Z90.49 Acquired absence of other specified parts of digestive tract; Z98.890 Other specified postprocedural states; Z91.040 Latex allergy status; Z88.8 Allergy status to other drugs, medicaments and biological substances
CPT/HCPCS: 36415; 80048; 85027; 85610; 93306; 93458; 99152; 99153; C1760; C1769; C1892; J1644; J2250; J3010; J3490; Q9967; G0269; C1771

== ENCOUNTER → 2020-06-05 | Outpatient (CLI) | payer MEDICARE, MEDICAID ==
[2020-04-11 14:14] VITALS: BP 97/48
[~2020-06-05] MED LIST changes: -HEPARIN for IV BOLUS 10,000 UNIT/10 ML VIAL. IART ONE; -HEPARIN for IV BOLUS 10,000 UNIT/10 ML VIAL. ONE; -IODIXANOL 320 MG/ML 100 ML VIAL. IART ONE; -IODIXANOL 320 MG/ML 100 ML VIAL. ONE; -LIDOCAINE 1% Multi-Dose 20 ML VIAL. INJ ONE; -LIDOCAINE 1% Multi-Dose 20 ML VIAL. ONE; -LIDOCAINE 1% PF 2 ML VIAL. ONE; -MIDAZOLAM HCL/PF 5 MG/5 ML VIAL. IV ONE; -MIDAZOLAM HCL/PF 5 MG/5 ML VIAL. ONE; -NITROGLYCERIN 200 MCG/2 ML SYRINGE FOR CATH/VASC LAB. IART ONE; -NITROGLYCERIN 200 MCG/2 ML SYRINGE FOR CATH/VASC LAB. ONE; -VERAPAMIL 5 MG/2 ML VIAL. IART ONE; -VERAPAMIL 5 MG/2 ML VIAL. ONE; -fentaNYL PF VIAL 100 MCG/2 ML VIAL IV ONE; -fentaNYL PF VIAL 100 MCG/2 ML VIAL ONE
--- NOTE | 2020-06-06 11:54 | RAD ---
DATE: 06/05/2020 9:19 AM EXAM: DIGITAL SCREEN BILAT W/CAD HISTORY: Screening COMPARISON: 05/17/2019 Bilateral full field craniocaudal and mediolateral oblique images were obtained using digital technique. This study was interpreted with the benefit of Computerized Aided Detection (CAD). FINDINGS: Breast Density: SCATTERED The breast parenchyma shows scattered fibroglandular densities. Breast parenchyma level B No suspicious masses, microcalcifications or architectural distortion is present to suggest malignancy in either breast. The visualized axillae are unremarkable. IMPRESSION: No mammographic evidence of malignancy. BI-RADS CATEGORY: 1 NEGATIVE RECOMMENDED FOLLOW-UP: 12M 12 MONTH FOLLOW-UP Annual screening mammography is recommended, unless clinically indicated sooner based on symptoms or change in physical exam. PQRS compliance statement: Patient information was entered into a reminder system with a target due date for the next mammogram. Mammography is a sensitive method for finding small breast cancers, but it does not detect them all and is not a substitute for careful clinical examination. A negative mammogram does not negate a clinically suspicious finding and should not result in delay in biopsying a clinically suspicious abnormality. "Our facility is accredited by the [employer] Mammography Program."
== END ==
LOC: MAMMO 09:10
PROVIDERS: ATTEND Family Medicine
DX: Z12.31 Encounter for screening mammogram for malignant neoplasm of breast (principal)
CPT/HCPCS: 77067

== ENCOUNTER → 2020-07-25 | Outpatient (CLI) | payer MEDICARE, MEDICAID ==
[2020-04-11 14:14] VITALS: BP 97/48
--- NOTE | 2020-07-25 11:26 | RAD ---
INDICATION: Reason: lt leg pain / Spl. Instructions: / History: COMPARISON: None. TECHNIQUE: Grayscale, color and doppler ultrasound images were obtained of the left lower extremity v enous vasculature. LEFT: No thrombus identified in the common femoral vein, femoral vein, popliteal vein or visualized calf ve ins. IMPRESSION: * No thrombus identified in deep venous system of the left lower extremity. Electronically signed by: Angel Damico MD (07/25/2020 11:23 AM) [id number]
== END ==
LOC: US 11:04
PROVIDERS: ATTEND Family Medicine
DX: M79.605 Pain in left leg (principal)
CPT/HCPCS: 93971

== ENCOUNTER → 2020-07-26 | Outpatient (CLI) | payer MEDICARE, MEDICAID ==
[2020-04-11 14:14] VITALS: BP 97/48
--- NOTE | 2020-07-26 13:40 | RAD ---
3 views the right ankle without comparison for right ankle effusion. FINDINGS: There is no fracture, dislocation, or acute osseous abnormality identified. Ankle mortise i s symmetric. No large joint effusion is seen. No radiopaque foreign bodies or significant degenerativ e changes. IMPRESSION: 1. No acute osseous abnormality. Electronically signed by: Romie Sawyer MD (07/26/2020 1:37 PM) [id number]
== END ==
LOC: LAB 11:56
PROVIDERS: ATTEND Family Medicine
DX: M25.471 Effusion, right ankle (principal)
CPT/HCPCS: 73610

== ENCOUNTER → 2020-07-31 | Outpatient (CLI) | payer MEDICARE, MEDICAID ==
[2020-04-11 14:14] VITALS: BP 97/48
--- NOTE | 2020-08-01 10:02 | SLEEP ---
DATE OF STUDY: 07/31/2020 HOME SLEEP STUDY The patient is a 59-year-old who weighs 160 pounds with a BMI of 31.2. The patient's Osage score was 8. The patient underwent home sleep study performed by [facility]. Total recording time was 445 minutes. During the night of the study, the patient had 27 obstructive apneas, no central or mixed apneas and no hypopneas. The patient's AHI was 3.8 per hour. The patient did have flow limitation throughout the night. Nocturnal oximetry study revealed an average oxygen saturation of 89% with the lowest of 86%. Mean heart rate 61 beats per minute. IMPRESSION: 1. No clinically significant sleep disorder breathing. The patient's AHI was 3.8 per hour. 2. Mild sustained nocturnal hypoxia suggestive of hypoventilation. RECOMMENDATIONS: 1. The patient does not meet the criteria for CPAP initiation. 2. If clinical suspicion for sleep apnea is still high, then consider doing in-lab sleep study. 3. Rule out any pulmonary or cardiac etiology of the patient's nocturnal hypoxia. BALDOMERO DR: Domi TID: [id number]
== END ==
LOC: RT 08:01
PROVIDERS: ATTEND Family Medicine
DX: G47.33 Obstructive sleep apnea (adult) (pediatric) (principal)
CPT/HCPCS: G0399

== ENCOUNTER → 2020-08-13 | Outpatient (CLI) | payer MEDICARE, MEDICAID ==
[2020-04-11 14:14] VITALS: BP 97/48
--- NOTE | 2020-08-13 08:33 | RAD ---
INDICATION: Reason: PAIN / Spl. Instructions: / History: COMPARISON: None. IMPRESSION: Left knee: 3 views obtained. Knee arthroplasty changes without periprosthetic fracture or dislocation . Right knee: 3 views obtained. Moderate degenerative changes with osteophyte formation. Small joint ef fusion. No acute fracture or dislocation. Electronically signed by: Angel Damico MD (08/13/2020 8:30 AM) [id number]
== END ==
LOC: RAD 07:57
PROVIDERS: ATTEND Family Medicine
DX: M17.0 Bilateral primary osteoarthritis of knee (principal); M25.762 Osteophyte, left knee; M25.761 Osteophyte, right knee; M25.462 Effusion, left knee; M25.461 Effusion, right knee
CPT/HCPCS: 73562-50

== ENCOUNTER → 2021-01-08 | Outpatient (CLI) | payer MEDICARE, MEDICAID ==
[2020-04-11 14:14] VITALS: BP 97/48
[~2021-01-08] MED LIST changes: +CYCL10TA19 PO; -CYCL10TA2 PO; +MIRT-7; -MIRT15TA3; -OMEP40CA45 PO; +OMEP40CA7 PO
[2021-01-08 11:44] LABS: BASO # 0.1 x10^3/uL (0.0-0.2); BASO % 1 % (0-3); EOS # 0.1 x10^3/uL (0.0-0.7); EOS % 1 % (0-3); HEMATOCRIT 38.6 % (36.0-47.0); HEMOGLOBIN 12.9 g/dL (12.0-15.5); LYMPH # 4.6 x10^3/uL (1.0-4.8); LYMPH % 60 % (24-48); MEAN CORPUSCULAR HEMOGLOBIN 29 pg (25-35); MEAN CORPUSCULAR HGB CONC 33 g/dL (31-37); MEAN CORPUSCULAR VOLUME 87 fL (79-100); MONO # 0.5 x10^3/uL (0.0-1.1); MONO % 6 % (0-9); NEUT # 2.4 x10^3/uL (1.8-7.7); NEUT % 32 % (31-73); PLATELET COUNT 221 x10^3/uL (140-400); RED BLOOD COUNT 4.44 x10^6/uL (3.50-5.40); RED CELL DISTRIBUTION WIDTH 13.6 % (11.5-14.5); WHITE BLOOD COUNT 7.6 x10^3/uL (4.0-11.0)
[2021-01-08 13:06] LABS: % LYMPHS 66 % (24-48); % MONOS 4 % (0-10); % SEGS 30 % (35-66); PLT ESTIMATE ADEQUATE (ADEQUATE)
== END ==
LOC: LAB 11:17
PROVIDERS: ATTEND Orthopaedic Surgery
DX: M79.605 Pain in left leg (principal)
CPT/HCPCS: 36415; 85007; 85025; 85651; 86140

== ENCOUNTER → 2021-02-10 | Outpatient (CLI) | payer MEDICARE, MEDICAID ==
[2020-04-11 14:14] VITALS: BP 97/48
--- NOTE | 2021-02-10 14:25 | RAD ---
5 view C-spine HISTORY: Osteoarthritis and ulnar neuropathy AP lateral open mouth and bilateral oblique views were obtained There is straightening of the normal cervical lordosis. There is minimal anterolisthesis of C4 on C5. There is no loss of vertebral body stature. There is no prevertebral soft tissue swelling. The facet s are not well seen on the oblique views likely due to poor obliquity. IMPRESSION: No acute findings. Electronically signed by: Sandoval Betts III, MD (02/10/2021 2:22 PM) [facility]
== END ==
LOC: RAD 10:16
PROVIDERS: ATTEND Family Medicine
DX: M43.12 Spondylolisthesis, cervical region (principal); M19.90 Unspecified osteoarthritis, unspecified site; G56.21 Lesion of ulnar nerve, right upper limb; G56.22 Lesion of ulnar nerve, left upper limb
CPT/HCPCS: 72050

== ENCOUNTER 2021-05-12 14:15 | Emergency (ER) | payer MEDICARE, MEDICAID ==
[~2021-05-12] VITALS: Ht 149.9 cm; Wt 68.1 kg
[2021-05-12] MEDS ORDERED: DEXAMETHASONE SOD PHOS 20 MG/5 ML VIAL. IV ONE (14:45)
[2021-05-12] MEDS ORDERED: NITROGLYCERIN OINT 1 GM PACKET. TP ONE (14:45)
[2021-05-12] MEDS ORDERED: ASPIRIN CHEWABLE 81 MG TABLET. PO ONE (14:45)
[2021-05-12] MEDS ORDERED: IPRATRPIUM/ALBUTEROL 0.5/2.5MG 3 ML NEBU. NEB ONE (14:45)
[2021-05-12] MEDS ORDERED: MORPHINE SULFATE 2 MG/ML INJ. IVP ONE ×2 (14:45→16:45)
--- NOTE | 2021-05-12 15:18 | RAD ---
XR CHEST 1V History: Dyspnea Comparison: 05/11/2018 Technique: Portable AP radiograph of the chest. Findings: There is rotated patient positioning which alters the cardiomediastinal silhouette. No focal airspace consolidation, pleural effusion or pneumothorax. Cardiac mediastinal silhouette and pulmonary vascul ature are within normal limits. Osseous structures and soft tissues are unremarkable. Impression: 1. No acute cardiopulmonary process. Electronically signed by: Biju Woody MD (05/12/2021 3:16 PM) [id number]
[2021-05-12 15:22] LABS: BASO % 0 % (0-3); EOS % 0 % (0-3); HEMATOCRIT 40.7 % (36.0-47.0); LYMPH # 2.6 x10^3/uL (1.0-4.8); LYMPH % 24 % (24-48); MEAN CORPUSCULAR HEMOGLOBIN 28 pg (25-35); MEAN CORPUSCULAR HGB CONC 32 g/dL (31-37); MEAN CORPUSCULAR VOLUME 87 fL (79-100); MONO # 0.9 x10^3/uL (0.0-1.1); MONO % 8 % (0-9); NEUT # 7.2 x10^3/uL (1.8-7.7); NEUT % 67 % (31-73); PLATELET COUNT 257 x10^3/uL (140-400); RED BLOOD COUNT 4.69 x10^6/uL (3.50-5.40); RED CELL DISTRIBUTION WIDTH 13.7 % (11.5-14.5); WHITE BLOOD COUNT 10.8 x10^3/uL (4.0-11.0)
[2021-05-12 15:34] LABS: CALCIUM 8.2 mg/dL (8.5-10.1); GFR 68.7; POTASSIUM 3.4 mmol/L (3.5-5.1)
[2021-05-12 15:39] LABS: ALBUMIN 4.2 g/dL (3.4-5.0); ALBUMIN/GLOBULIN RATIO 1.1 (1.0-1.7); MAGNESIUM 1.7 mg/dL (1.8-2.4); TOTAL BILIRUBIN 0.2 mg/dL (0.2-1.0)
[2021-05-12 15:46] LABS: INFLUENZA A PATIENT NEGATIVE (NEGATIVE); INFLUENZA B PATIENT NEGATIVE (NEGATIVE)
[2021-05-12] MEDS ORDERED: IOHEXOL 350 MG/ML 100 ML VIAL. IV ONE (16:30)
[2021-05-12] MEDS ORDERED: CONTRAST GIVEN. MC PRN (16:45)
[2021-05-12] MEDS ORDERED: FAMOTIDINE 20 MG/2 ML VIAL IVP ONE (16:45)
[2021-05-12] MEDS ORDERED: LIDO:MAALOX 1:1 20 ML SINGLE DOSE. SWSW ONE (16:45)
--- NOTE | 2021-05-12 16:52 | RAD ---
CTA CHEST History: Chest pain, elevated d-dimer, rule out PE. Comparison: None. Technique: CTA of the pulmonary arteries with intravenous contrast. 3-D postprocessing was performed. Findings: Pulmonary arteries: No pulmonary embolism. Aorta and great vessels: No aneurysm or dissection of the aortic arch or thoracic aorta. Thyroid: No significant abnormalities. Mediastinum and sony: No masses or adenopathy. Esophagus: The visualized esophagus is normal. Heart: The heart is normal in size. There is no pericardial effusion. Airways, Lungs, Pleura: Linear atelectatic changes in the right lower lobe. No significant consolidat ion. No effusion or pneumothorax. Upper abdomen: Status post cholecystectomy with dilation the common bile duct to 1.3 cm. Osseous structures and soft tissues: Within normal limits for age. Impression: 1. No pulmonary embolism. 2. Right lower lobe atelectasis/scarring. No significant consolidation. 3. Common bile duct dilatation to 1.3 cm status post cholecystectomy. Correlate for evidence of bili mikey obstruction. ------ Exposure: One or more of the following individualized dose reduction techniques were utilized for thi s examination: 1. Automated exposure control 2. Adjustment of the mA and/or kV according to patient size 3. Use of iterative reconstruction technique. Electronically signed by: Biju Woody MD (05/12/2021 4:49 PM) [id number]
[2021-05-12] MEDS ORDERED: HYDROcodone/APAP 5/325MG 1 TAB TABLET PO ONE (17:15)
[2021-05-12] MEDS ORDERED: HYDR-2761 PO (17:19)
[2021-05-12] MEDS ORDERED: ALBU2.5V8 IH (17:19)
[2021-05-12] MEDS ORDERED: SUCR1TAB35 PO (17:19)
[2021-05-12] MEDS ORDERED: PRED20TA PO (17:19)
[2021-05-12] MEDS ORDERED: FAMO-63 PO (17:19)
--- NOTE | 2021-05-12 17:20 | PHYS DOC ---
Past Medical History Past Medical History: Diabetes-Type II, High Cholesterol, Hypertension Past Surgical History: Cholecystectomy, Other Additional Past Surgical Histo: LEFT KNEE, HERNIA REPAIR Smoking Status: Current Every Day Smoker Additional Information: VAPES Alcohol Use: None Drug Use: None Adult General Chief Complaint Chief Complaint: CHEST PAIN HPI HPI Patient is a 60 year old female who presents with chest pain and coughing. The patient describes a burning sensation going from the sternal region up towards her throat. She states that she was working with some type of toilet bowl marble cleaner and bleach. She accidentally mix them together and inhaled some of the fumes and began coughing afterwards. She does not have any chest discomfort except for the coughing episodes but does have a persistent burning feeling most prominent in the throat area. She does not have any pain with swallowing or trouble swallowing. No history of coronary artery disease. Patient does not smoke cigarettes but does use a vape pen. No diabetes or high cholesterol but patient does have hypertension. Review of Systems Review of Systems Constitutional: Denies fever Eyes: Denies change in visual acuity or eye pain HENT: Denies sore throat Respiratory: Reports shortness of breath Cardiovascular: Denies chest pain GI: Denies abd pain : Denies dysuria Musculoskeletal: Denies back or extremity injury Integument: Denies rash or skin lesions Neurologic: Denies headache, focal weakness or sensory changes All other systems were reviewed and found to be within normal limits, except as documented in this note. Current Medications Current Medications Current Medications Medications (Trade) Dose Ordered Sig/Girish Start Time Stop Time Status Last Admin Dose Admin Albuterol/ Ipratropium (Duoneb) 3 ml 1X ONCE 05/12/21 14:45 05/12/21 14:52 DC 05/12/21 15:18 3 ML Aspirin (Aspirin Chewable) 324 mg 1X ONCE 05/12/21 14:45 05/12/21 14:52 DC 05/12/21 14:57 324 MG Dexamethasone Sodium Phosphate (Decadron) 10 mg 1X ONCE 05/12/21 14:45 05/12/21 14:52 DC 05/12/21 14:58 10 MG Famotidine (Pepcid Vial) 20 mg 1X ONCE 05/12/21 16:45 05/12/21 16:46 DC Info (CONTRAST GIVEN -- Rx MONITORING) 1 each PRN DAILY PRN 05/12/21 16:45 05/14/21 16:44 Iohexol (Omnipaque 350 Mg/ml) 90 ml 1X ONCE 05/12/21 16:30 05/12/21 16:31 DC 05/12/21 16:41 90 ML Morphine Sulfate (Morphine Sulfate) 2 mg 1X ONCE 05/12/21 16:45 05/12/21 16:46 DC Multi-Ingredient Mouthwash/Gargle (Gi Cocktail) 20 ml 1X ONCE 05/12/21 16:45 05/12/21 16:46 DC Nitroglycerin (Nitro-Bid Oint) 1 inch 1X ONCE 05/12/21 14:45 05/12/21 14:52 DC 05/12/21 14:59 1 INCH Allergies Allergies Allergies Coded Allergies Type Severity Reaction Last Updated Verified Latex, Natural Rubber Allergy Intermediate BREAKS OUT 05/12/21 Yes promethazine Allergy Intermediate 05/12/21 Yes Physical Exam Physical Exam Constitutional: Well developed, well nourished, no acute distress, non-toxic appearance. HENT: Normocephalic, atraumatic, bilateral external ears normal, mucosa moist, nose normal. Eyes: EOMI, conjunctiva normal, no discharge. Neck: Normal range of motion, supple, no stridor, no meningeal signs. Cardiovascular: Regular rate and rhythm Lungs & Thorax: Scattered wheezes bilaterally with good breath sounds and good air exchange Abdomen: Soft, no tenderness or obvious masses Skin: Warm, dry, no erythema, no rash. Extremities: No tenderness, no cyanosis, no clubbing, ROM intact, no edema. Neurologic: Alert and oriented, normal motor function, normal sensory function, no focal deficits noted. Psychologic: Affect normal, judgement normal, mood normal. Current Patient Data Vital Signs Vital Signs Date Time Temp Pulse Resp B/P (MAP) Pulse Ox O2 Delivery O2 Flow Rate FiO2 05/12/21 15:56 20 96 Room Air 05/12/21 15:23 86 159/69 (99) 05/12/21 14:24 98.5 98.5 Lab Values Laboratory Tests Test 05/12/21 14:36 05/12/21 15:15 White Blood Count 10.8 x10^3/uL (4.0-11.0) Red Blood Count 4.69 x10^6/uL (3.50-5.40) Hemoglobin 13.0 g/dL (12.0-15.5) Hematocrit 40.7 % (36.0-47.0) Mean Corpuscular Volume 87 fL (79-100) Mean Corpuscular Hemoglobin 28 pg (25-35) Mean Corpuscular Hemoglobin Concent 32 g/dL (31-37) Red Cell Distribution Width 13.7 % (11.5-14.5) Platelet Count 257 x10^3/uL (140-400) Neutrophils (%) (Auto) 67 % (31-73) Lymphocytes (%) (Auto) 24 % (24-48) Monocytes (%) (Auto) 8 % (0-9) Eosinophils (%) (Auto) 0 % (0-3) Basophils (%) (Auto) 0 % (0-3) Neutrophils # (Auto) 7.2 x10^3/uL (1.8-7.7) Lymphocytes # (Auto) 2.6 x10^3/uL (1.0-4.8) Monocytes # (Auto) 0.9 x10^3/uL (0.0-1.1) Eosinophils # (Auto) 0.0 x10^3/uL (0.0-0.7) Basophils # (Auto) 0.0 x10^3/uL (0.0-0.2) D-Dimer (Ursula) 1.48 ug/mlFEU (0.00-0.50) H Sodium Level 141 mmol/L (136-145) Potassium Level 3.4 mmol/L (3.5-5.1) L Chloride Level 103 mmol/L (98-107) Carbon Dioxide Level 21 mmol/L (21-32) Anion Gap 17 (6-14) H Blood Urea Nitrogen 11 mg/dL (7-20) Creatinine 1.0 mg/dL (0.6-1.0) Estimated GFR (Cockcroft-Gault) 68.7 BUN/Creatinine Ratio 11 (6-20) Glucose Level 142 mg/dL (70-99) H Calcium Level 8.2 mg/dL (8.5-10.1) L Magnesium Level 1.7 mg/dL (1.8-2.4) L Total Bilirubin 0.2 mg/dL (0.2-1.0) Aspartate Amino Transferase (AST) 16 U/L (15-37) Alanine Aminotransferase (ALT) 25 U/L (14-59) Alkaline Phosphatase 114 U/L (46-116) Troponin I High Sensitivity 11 ng/L (4-50) AG-Bfy-F-Type Natriuretic Peptide 34 pg/mL (0-124) Total Protein 8.0 g/dL (6.4-8.2) Albumin 4.2 g/dL (3.4-5.0) Albumin/Globulin Ratio 1.1 (1.0-1.7) Lipase 60 U/L (73-393) L Influenza Type A Antigen Negative (NEGATIVE) Influenza Type B Antigen Negative (NEGATIVE) SARS-CoV-2 Antigen (Rapid) Negative (NEGATIVE) Laboratory Tests 05/12/21 14:36 Laboratory Tests 05/12/21 14:36 EKG EKG [] Interpretation Time: Twelve-lead EKG demonstrates a sinus rhythm with a rate of 101. SD intervals 110 ms, QRS is 80 ms and QT corrected is 382. No ST segment elevation or depression. She does have some flattening of the T waves in the lateral precordial leads as well as most of the limb leads. Radiology/Procedures Radiology/Procedures [] Impressions: PATIENT: NICOLE DELANEY FACCOUNT: [id number]#: [id number] : 1960 LOCATION: ER AGE: 60 SEX: F EXAM STATUS: REG ER ORD. PHYSICIAN: ADITYA DIAZ MD REASON: dyspnea PROCEDURE: CHEST AP ONLY XR CHEST 1V History: Dyspnea Comparison: 05/11/2018 Technique: Portable AP radiograph of the chest. Findings: There is rotated patient positioning which alters the cardiomediastinal silhouette. No focal airspace consolidation, pleural effusion or pneumothorax. Cardiac mediastinal silhouette and pulmonary vasculature are within normal li mits. Osseous structures and soft tissues are unremarkable. Impression: 1. No acute cardiopulmonary process. Electronically signed by: Biju Weinberg MD (05/12/2021 3:16 PM) [id number] DICTATED and SIGNED BY: BIJU WEINBERG MD DATE: 05/12/21 [id number] PATIENT: NICOLE DELANEY ACCOUNT: [id number] : 1960 LOCATION: ER AGE: 60 SEX: F EXAM STATUS: REG ER ORD. PHYSICIAN: ADITYA DIAZ MD REASON: cp, elev d-dimer PROCEDURE: CT ANGIOGRAPHY CHEST CTA CHEST History: Chest pain, elevated d-dimer, rule out PE. Comparison: None. Technique: CTA of the pulmonary arteries with intravenous contrast. 3-D postprocessing was performed. Findings: Pulmonary arteries: No pulmonary embolism. Aorta and great vessels: No aneurysm or dissection of the aortic arch or thoracic aorta. Thyroid: No significant abnormalities. Mediastinum and sony: No masses or adenopathy. Esophagus: The visualized esophagus is normal. Heart: The heart is normal in size. There is no pericardial effusion. Airways, Lungs, Pleura: Linear atelectatic changes in the right lower lobe. No significant consolidation. No effusion or pneumothorax. Upper abdomen: Status post cholecystectomy with dilation the common bile duct to 1.3 cm. Osseous structures and soft tissues: Within normal limits for age. Impression: 1. No pulmonary embolism. 2. Right lower lobe atelectasis/scarring. No significant consolidation. 3. Common bile duct dilatation to 1.3 cm status post cholecystectomy. Correlate for evidence of biliary obstruction. ------ Exposure: One or more of the following individualized dose reduction techniques were utilized for this examination: 1. Automated exposure control 2. Adjustment of the mA and/or kV according to patient size 3. Use of iterative reconstruction technique. Electronically signed by: Biju Weinberg MD (05/12/2021 4:49 PM) [id number] DICTATED and SIGNED BY: BIJU WEINBERG MD DATE: 05/12/21 [id number] 0 Course & Med Decision Making Course & Med Decision Making Pertinent Labs and Imaging studies reviewed. (See chart for details) [] This is a 60-year-old female with cough and dyspnea after inhaling a combination of chemicals unknown, 1 of which was bleach. We ultimately got a CT scan of the chest as the patient's D-dimer was elevated, CT is negative for any evidence of any acute process. She does not have pneumonitis or evidence of a great degree of swelling in the bronchi or bronchial tubes. She was given a DuoNeb treatment and Decadron in the ED, also some morphine for pain management as well as a GI cocktail and Pepcid. On reassessment she does feel improved overall. We will discharge her with continued albuterol and prednisone for 3 additional days, Pepcid and Carafate, and a total of 8 5 mg [place] tablets to be used as needed. She is stable for discharge at this time. Should symptoms become worse that she is encouraged to return to the [facility] department at any point. Dragon Disclaimer Dragon Disclaimer This electronic medical record was generated, in whole or in part, using a voice recognition dictation system. Departure Departure Impression: Primary Impression: Dyspnea Additional Impressions: Exposure to chemical inhalation Atypical chest pain Disposition: HOME / SELF CARE / HOMELESS Condition: STABLE Referrals: Nicki LOPEZ MD (PCP) Patient Instructions: Bronchospasm, Adult, Chemical Inhalation, Chest Pain (Nonspecific) Scripts Prednisone (PREDNISONE) 20 Mg Tablet 40 MG PO DAILY for 3 Days, #6 TAB Prov: ADITYA DIAZ MD 05/12/21 Albuterol Sulfate (PROAIR HFA INHALER) 8.5 Gm Hfa.aer.ad 2 PUFF IH PRN Q4-6HRS PRN for wheezing for 21 Days, #1 INHALER 0 Refills Prov: ADITYA DIAZ MD 05/12/21 Hydrocodone Bit/Acetaminophen (HYDROCODONE-APAP 5-325 ) 1 Tab Tablet 1 TAB PO PRN Q6HRS PRN for PAIN, #8 TAB 0 Refills Prov: ADITYA DIAZ MD 05/12/21 Sucralfate (CARAFATE) 1 Gm Tablet 1 TAB PO QID for 30 Days, #120 TAB 0 Refills Prov: ADITYA DIAZ MD 05/12/21 Famotidine (PEPCID) 20 Mg Tablet 20 MG PO BID for 30 Days, #60 TAB Prov: ADITYA DIAZ MD 05/12/21 Problem Qualifiers ADITYA DIAZ MD May 12, 2021 17:20
[2021-05-12 17:31] VITALS: BP 117/56
--- NOTE | 2021-05-13 05:21 | EKG ---
[facility] [address] [place] [address] Test Date: 2021-05-12 Test Time: 14:27:10 Pat Name: NICOLE DELANEY Department: Room: Gender: F Certified Medical Dosimetrist: : 1960 Requested By: ADITYA DIAZ Order Number: [id number] Reading MD: Derrick Hill MD Measurements Intervals [place] Rate: 101 P: 5 NH: 118 QRS: 46 QRSD: 80 T: 23 QT: 294 QTc: 382 Interpretive Statements SINUS TACHYCARDIA Electronically Signed On 05-13-2021 11:00:03 GLOBAL ACCOUNT DIRECTOR by Derrick Hill MD
== END 2021-05-12 17:42 | disposition home or self-care (01) ==
LOC: ER 14:15
DX: R07.2 Precordial pain (principal); R05.9 Cough, unspecified; Z20.822 Contact with and (suspected) exposure to COVID-19; E11.9 Type 2 diabetes mellitus without complications; E78.00 Pure hypercholesterolemia, unspecified; I10 Essential (primary) hypertension; F17.200 Nicotine dependence, unspecified, uncomplicated; Z91.040 Latex allergy status; Z88.8 Allergy status to other drugs, medicaments and biological substances
CPT/HCPCS: 36415; 71045; 71275; 80053; 83690; 83735; 83880; 84484; 85025; 85379; 87428; 93005; 94640; 96374; 96375; 96376; 99284; J1100; J2270; J3490; Q9967

== ENCOUNTER 2021-05-14 13:33 | Emergency (ER) | payer MEDICARE, MEDICAID ==
[~2021-05-14] VITALS: Ht 165.1 cm; Wt 80.0 kg
[~2021-05-14 13:33] MED LIST changes: +ALBU2.5V8 IH; +FAMO-63 PO; +HYDR-2761 PO; +SUCR1TAB35 PO
[2021-05-14] MEDS ORDERED: guaiFENesin/CODEINE 100mg/10mg 5 ML LIQUID PO STA (14:14)
[2021-05-14] MEDS ORDERED: NITROGLYCERIN SUBLINGUAL 0.4 MG BOTTLE OF 25. SL PRN (14:15)
[2021-05-14 14:38] LABS: BASO # 0.1 x10^3/uL (0.0-0.2); BASO % 1 % (0-3); EOS % 0 % (0-3); HEMATOCRIT 38.2 % (36.0-47.0); HEMOGLOBIN 12.5 g/dL (12.0-15.5); LYMPH # 1.8 x10^3/uL (1.0-4.8); LYMPH % 25 % (24-48); MEAN CORPUSCULAR HEMOGLOBIN 28 pg (25-35); MEAN CORPUSCULAR HGB CONC 33 g/dL (31-37); MEAN CORPUSCULAR VOLUME 85 fL (79-100); MONO # 0.3 x10^3/uL (0.0-1.1); MONO % 4 % (0-9); NEUT # 4.9 x10^3/uL (1.8-7.7); NEUT % 70 % (31-73); PLATELET COUNT 232 x10^3/uL (140-400); RED BLOOD COUNT 4.51 x10^6/uL (3.50-5.40); RED CELL DISTRIBUTION WIDTH 13.7 % (11.5-14.5); WHITE BLOOD COUNT 7.1 x10^3/uL (4.0-11.0)
[2021-05-14] MEDS ORDERED: ASPIRIN 325 MG TABLET PO ONE (14:45)
[2021-05-14] MEDS ORDERED: IPRATRPIUM/ALBUTEROL 0.5/2.5MG 3 ML NEBU. NEB ONE (14:45)
[2021-05-14 14:46] LABS: CLARITY,URINE CLEAR; COLOR,URINE YELLOW
[2021-05-14 14:47] LABS: BILIRUBIN,URINE NEGATIVE (NEG); NITRITE,URINE NEGATIVE (NEG); PH,URINE 7.5 (<5.0-8.0); PROTEIN,URINE NEGATIVE (NEG-TRACE); UROBILINOGEN,URINE 0.2 mg/dL (0.2 mg/dL)
[2021-05-14 14:50] LABS: CALCIUM 8.9 mg/dL (8.5-10.1); GFR 68.7; POTASSIUM 4.3 mmol/L (3.5-5.1)
[2021-05-14 14:52] LABS: HYALINE CASTS, URINE OCCASIONAL /HPF
[2021-05-14 14:54] LABS: WBC,URINE OCC /HPF (0-4)
[2021-05-14 14:55] LABS: AMPHETAMINE/METHAMPHETAMINE NEG (NEG); BACTERIA,URINE 0 /HPF (0-FEW); BARBITURATES POS (NEG); BENZODIAZEPINES POS (NEG); CANNABINOIDS NEG (NEG); COCAINE NEG (NEG); METHADONE NEG (NEG); OPIATES POS (NEG); PHENCYCLIDINE NEG (NEG); TOTAL BILIRUBIN 0.3 mg/dL (0.2-1.0); TOTAL PROTEIN 8.2 g/dL (6.4-8.2)
--- NOTE | 2021-05-14 15:07 | RAD ---
Single view chest dated 05/14/2021 3:04 PM: COMPARISON: 05/12/2021 Clinical Indication: Chest pain. Findings: Single upright portable exam of the chest was performed. Heart size and mediastinal contours are with in normal limits. Lungs are clear. No consolidation or pleural effusion. No pneumothorax. IMPRESSION: No acute radiographic abnormality. Electronically signed by: Todd Bishop MD (05/14/2021 3:04 PM) MARY
[2021-05-14] MEDS ORDERED: LORazepam 0.5 MG TABLET PO ONE (16:00)
[2021-05-14 16:07] VITALS: BP 117/57
[2021-05-14] MEDS ORDERED: oxyCODONE IR 5 MG TABLET PO ONE (16:15)
--- NOTE | 2021-05-14 16:45 | PHYS DOC ---
Past Medical History Past Medical History: COPD, Diabetes-Type II, High Cholesterol, Hypertension Past Surgical History: No Surgical History Additional Past Surgical Histo: LEFT KNEE, HERNIA REPAIR Smoking Status: Current Every Day Smoker Alcohol Use: None Drug Use: None General Adult EDM: Chief Complaint: CHEST WALL PAIN HPI: HPI: Patient is a 60 year old female with a history of diabetes type 2, hypertension, high cholesterol, COPD, who presents to the ED today complaining of 10 out of 10 minutes midsternal chest pain that radiates to her upper back, symptoms began on Wednesday after cleaning with some household chemicals. Patient states the pain is worse when she is coughing. Denies any shortness of breath, denies anything specifically relieving the pain. She states she was seen in the ED on Wednesday for the same complaint and was worked up. She she was sent home with prednisone,sulcrafe, and hydrocodone. She states this medicines are not helping with her pain. She states today her neighbor heard her moaning and groaning out loud and called EMS for help. She states she has an appointment with her PCP tomorrow. Review of Systems: Review of Systems: Constitutional: Denies fever or chills. [] Eyes: Denies change in visual acuity. [] HENT: Denies nasal congestion or sore throat. [] Respiratory: Reports cough, denies shortness of breath Cardiovascular: Reports midsternal chest pain GI: Denies abdominal pain, nausea, vomiting, bloody stools or diarrhea. [] : Denies dysuria. [] Musculoskeletal: Denies back pain or joint pain. [] Integument: Denies rash. [] Neurologic: Denies headache, focal weakness or sensory changes. [] Psychiatric: Denies depression or anxiety. [] Heart Score: C/O Chest Pain: N/A Risk Factors: Risk Factors: DM, Current or recent (<one month) smoker, HTN, HLP, family history of CAD, obesity. Risk Scores: Score 0 - 3: 2.5% MACE over next 6 weeks - Discharge Home Score 4 - 6: 20.3% MACE over next 6 weeks - Admit for Clinical Observation Score 7 - 10: 72.7% MACE over next 6 weeks - Early Invasive Strategies Current Medications: Current Medications Medications (Trade) Dose Ordered Sig/Girish Start Time Stop Time Status Last Admin Dose Admin Albuterol/ Ipratropium (Duoneb) 3 ml 1X ONCE 05/14/21 14:45 05/14/21 14:46 DC 05/14/21 14:49 3 ML Aspirin (Saturnino Aspirin) 325 mg 1X ONCE 05/14/21 14:45 05/14/21 14:46 DC 05/14/21 14:30 325 MG Guaifenesin/ Codeine Phosphate (Robitussin Ac) 10 ml 1X STAT 05/14/21 14:14 05/14/21 14:21 DC 05/14/21 14:14 10 ML Lorazepam (Ativan) 0.5 mg 1X ONCE 05/14/21 16:00 05/14/21 16:01 DC Nitroglycerin (Nitrostat) 0.4 mg PRN Q5MIN PRN 05/14/21 14:15 05/15/21 14:14 Oxycodone HCl (Roxicodone) 20 mg 1X ONCE 05/14/21 16:15 05/14/21 16:16 UNV Allergies: Allergies: Allergies Coded Allergies Type Severity Reaction Last Updated Verified Latex, Natural Rubber Allergy Intermediate BREAKS OUT 05/12/21 Yes promethazine Allergy Intermediate 05/12/21 Yes Physical Exam: PE: Constitutional: Well developed, well nourished, no acute distress, non-toxic appearance. [] HENT: Normocephalic, atraumatic, bilateral external ears normal, oropharynx moist, no oral exudates, nose normal. [] Eyes: PERRLA, EOMI, conjunctiva normal, no discharge. [] Neck: Normal range of motion, no tenderness, supple, no stridor. [] Cardiovascular:Heart rate regular rhythm, no murmur [] Lungs & Thorax: Bilateral breath sounds clear to auscultation [] Abdomen: Bowel sounds normal, soft, no tenderness, no masses, no pulsatile masses. [] Skin: Warm, dry, no erythema, no rash. [] Back: No tenderness, no CVA tenderness. [] Extremities: No tenderness, no cyanosis, no clubbing, ROM intact, no edema. [] Neurologic: Alert and oriented X 3, normal motor function, normal sensory function, no focal deficits noted. [] Psychologic: Patient is loud, coughing and hacking and moaning and groaning and yelling at nursing staff Current Patient Data: Labs: Laboratory Tests Test 05/14/21 14:25 White Blood Count 7.1 x10^3/uL (4.0-11.0) Red Blood Count 4.51 x10^6/uL (3.50-5.40) Hemoglobin 12.5 g/dL (12.0-15.5) Hematocrit 38.2 % (36.0-47.0) Mean Corpuscular Volume 85 fL (79-100) Mean Corpuscular Hemoglobin 28 pg (25-35) Mean Corpuscular Hemoglobin Concent 33 g/dL (31-37) Red Cell Distribution Width 13.7 % (11.5-14.5) Platelet Count 232 x10^3/uL (140-400) Neutrophils (%) (Auto) 70 % (31-73) Lymphocytes (%) (Auto) 25 % (24-48) Monocytes (%) (Auto) 4 % (0-9) Eosinophils (%) (Auto) 0 % (0-3) Basophils (%) (Auto) 1 % (0-3) Neutrophils # (Auto) 4.9 x10^3/uL (1.8-7.7) Lymphocytes # (Auto) 1.8 x10^3/uL (1.0-4.8) Monocytes # (Auto) 0.3 x10^3/uL (0.0-1.1) Eosinophils # (Auto) 0.0 x10^3/uL (0.0-0.7) Basophils # (Auto) 0.1 x10^3/uL (0.0-0.2) Urine Collection Type Unknown Urine Color Yellow Urine Clarity Clear Urine pH 7.5 (<5.0-8.0) Urine Specific Milo 1.015 (1.000-1.030) Urine Protein Negative mg/dL (NEG-TRACE) Urine Glucose (UA) Negative mg/dL (NEG) Urine Ketones (Stick) Negative mg/dL (NEG) Urine Blood Negative (NEG) Urine Nitrite Negative (NEG) Urine Bilirubin Negative (NEG) Urine Urobilinogen Dipstick 0.2 mg/dL (0.2 mg/dL) Urine Leukocyte Esterase Negative (NEG) Urine RBC 1-2 /HPF (0-2) Urine WBC Occ /HPF (0-4) Urine Squamous Epithelial Cells Mod /LPF Urine Bacteria 0 /HPF (0-FEW) Urine Hyaline Casts Occasional /HPF Sodium Level 141 mmol/L (136-145) Potassium Level 4.3 mmol/L (3.5-5.1) Chloride Level 104 mmol/L (98-107) Carbon Dioxide Level 21 mmol/L (21-32) Anion Gap 16 (6-14) H Blood Urea Nitrogen 8 mg/dL (7-20) Creatinine 1.0 mg/dL (0.6-1.0) Estimated GFR (Cockcroft-Gault) 68.7 BUN/Creatinine Ratio 8 (6-20) Glucose Level 139 mg/dL (70-99) H Calcium Level 8.9 mg/dL (8.5-10.1) Magnesium Level 2.0 mg/dL (1.8-2.4) Total Bilirubin 0.3 mg/dL (0.2-1.0) Aspartate Amino Transferase (AST) 21 U/L (15-37) Alanine Aminotransferase (ALT) 34 U/L (14-59) Alkaline Phosphatase 97 U/L (46-116) Troponin I High Sensitivity 9 ng/L (4-50) AT-Anl-N-Type Natriuretic Peptide 201 pg/mL (0-124) H Total Protein 8.2 g/dL (6.4-8.2) Albumin 4.0 g/dL (3.4-5.0) Albumin/Globulin Ratio 1.0 (1.0-1.7) Urine Opiates Screen Pos (NEG) Urine Methadone Screen Neg (NEG) Urine Barbiturates Pos (NEG) Urine Phencyclidine Screen Neg (NEG) Urine Amphetamine/Methamphetamine Neg (NEG) Urine Benzodiazepines Screen Pos (NEG) Urine Cocaine Screen Neg (NEG) Urine Cannabinoids Screen Neg (NEG) Urine Ethyl Alcohol Neg (NEG) Laboratory Tests 05/14/21 14:25 Laboratory Tests 05/14/21 14:25 Vital Signs: Vital Signs Date Time Temp Pulse Resp B/P (MAP) Pulse Ox O2 Delivery O2 Flow Rate FiO2 05/14/21 16:07 84 15 117/57 (77) 98 Room Air 05/14/21 13:59 97.9 97.9 EKG: EK interpreted by Dr. Watson sinus rhythm heart rate 78 no STEMI [] Radiology/Procedures: Radiology/Procedures: []PROCEDURE: PORTABLE CHEST 1V Single view chest dated 05/14/2021 3:04 PM: COMPARISON: 05/12/2021 Clinical Indication: Chest pain. Findings: Single upright portable exam of the chest was performed. Heart size and mediastinal contours are within normal limits. Lungs are clear. No consolidation or pleural effusion. No pneumothorax. IMPRESSION: No acute radiographic abnormality. Electronically signed by: Todd Bishop MD (05/14/2021 3:04 PM) [facility] [place] and SIGNED BY: TODD BISHOP MD DATE: 05/14/21 [id number] 0 Course & Med Decision Making: Course & Med Decision Making Pertinent Labs and Imaging studies reviewed. (See chart for details) This is a 60-year-old female patient presented to the ED today complaining of chest pain that began on Wednesday after inhaling household cleaning chemicals. Patient was seen in the ED on Wednesday, had an extensive cardiac work-up including CTA chest which was negative. Today her neighbor heard her moaning and groaning and called 911. Patient is loud and screaming at nursing staff. Vitals on arrival to the ED temperature 97.9, heart rate 70, respiration 18 on room air, blood pressure 117/70. EKG is negative, high-sensitivity first troponin is normal. CBC with no acute findings, CMP with glucose of 139, anion gap is only 16. patient was offered IV fluids, she refused. Given a DuoNeb treatment in the ED, chest x-ray is negative. UDS positive for opiates, barbiturates, and benzodiazepines, she has been loud and obnoxious, moaning and groaning. At some point nursing staff had to leave her room because she was not cooperating, she was yelling at them. I went to talk to patient. Informed patient she has to work with us so we can help her. Informed her this is her second visit in the ED for chest pain, she will be admitted for chest pain. Patient declined, she states she has an appointment with her PCP tomorrow morning neither did she come to the ED on her own accord, she states her neighbor is the one who called EMS for her. She asked for a dose of oxycodone in the ED which she states she takes for chronic pain which was given the medicine. Refused to wait for a repeat troponin. She was discharged home and instructed to follow-up with her own PCP tomorrow as scheduled. Steve Disclaimer: Steve Disclaimer: This electronic medical record was generated, in whole or in part, using a voice recognition dictation system. Departure Departure Impression: Primary Impression: Chest pain Qualified Codes: R07.9 - Chest pain, unspecified Disposition: HOME / SELF CARE / HOMELESS Condition: STABLE Referrals: Nicki LOPEZ MD (PCP) Follow-up tomorrow as scheduled WINNIE CASON MD follow up as soon as you can Patient Instructions: Chest Pain (Nonspecific), [id number] Additional Instructions: You wer seen for chest pain, please follow-up with your primary care doctor as soon as you can. Please follow-up with the provided life enrichment manager as soon as you can BC WELDON APRN May 14, 2021 16:45
--- NOTE | 2021-05-15 07:43 | EKG ---
[facility] [address] [place] [address] Test Date: 2021-05-14 Test Time: 16:04:10 Pat Name: NICOLE DELANEY Department: Room: Gender: F Block Cuber: : 1960 Requested By: BC WELDON Order Number: [id number] Reading MD: Derrick Hill MD Measurements Intervals [place] Rate: 78 P: 31 [place]: 120 QRS: 31 QRSD: 82 T: 16 QT: 428 QTc: 492 Interpretive Statements SINUS RHYTHM Electronically Signed On 05-19-2021 11:17:22 RIVER CROSSING SUPERVISOR by Derrick Hill MD
== END 2021-05-14 17:00 | disposition home or self-care (01) ==
LOC: ER 13:33
DX: R07.2 Precordial pain (principal); E11.9 Type 2 diabetes mellitus without complications; E78.00 Pure hypercholesterolemia, unspecified; I10 Essential (primary) hypertension; J44.9 Chronic obstructive pulmonary disease, unspecified; F17.200 Nicotine dependence, unspecified, uncomplicated; Z91.040 Latex allergy status; Z88.1 Allergy status to other antibiotic agents
CPT/HCPCS: 36415; 71045; 80053; 80307; 81001; 83735; 83880; 84484; 85025; 93005; 94640; 99284-25; 99285-25

== ENCOUNTER → 2021-06-09 | Outpatient (CLI) | payer MEDICARE, MEDICAID ==
[2021-05-14 16:07] VITALS: BP 117/57
--- NOTE | 2021-06-09 12:19 | RAD ---
Bilateral digital screening 2-D and 3-D (digital breast tomosynthesis) mammogram: Reason for examination: Routine screening. Comparison: Mammograms from 06/05/2020, 05/17/2019, 04/28/2018. Interpretation was made with the benefit of CAD. FINDINGS: Breast density: Category B. There are scattered areas of fibroglandular density. No suspicious breast mass, malignant appearing calcifications, or architectural distortion is seen. IMPRESSION: No evidence of malignancy. Assessment: BI-RADS 1. Negative. Recommendation: Routine screening mammograms. The patient will receive a letter with the results in the mail. Patient information will be entered i nto the mammography reminder system with a target recall date for the next mammogram. A reminder luis er will be generated. Electronically signed by: Yasmin Soto MD (06/09/2021 12:17 PM) [email or web address]
== END ==
LOC: MAMMO 09:50
PROVIDERS: ATTEND Family Medicine
DX: Z12.31 Encounter for screening mammogram for malignant neoplasm of breast (principal)
CPT/HCPCS: 77063; 77067

== ENCOUNTER 2021-06-13 08:17 | Day surgery (SDC) | payer MEDICARE, MEDICAID ==
[~2021-06-13] VITALS: Ht 147.3 cm; Wt 68.0 kg
[~2021-06-13 08:17] MED LIST changes: +DEXAMETHASONE SOD PHOS 4 MG/ML VIAL ONE; +DIAZEPAM10 MG PO; +HYDROmorphone 2 MG/ML INJ. IVP PRN; +IV RINGERS,LACTATED 1000ML 1,000 ML IV SCH; +LIDOCAINE 2% PF 5 ML VIAL. ONE; +MORPHINE SULFATE 2 MG/ML INJ. IVP PRN; +ONDA4TAB12 PO; +ONDANSETRON PF 4 MG/2 ML VIAL. ONE; +PROPOFOL 10 MG/ML (20ML) VIAL. IV ONE; +SEVOFLURANE 31 TO 60 MINUTES. IH ONE; +SPIR50TA4 PO; +SUVO10TA PO; +VENL75CA6 PO; +fentaNYL PF VIAL 100 MCG/2 ML VIAL IVP PRN; +fentaNYL PF VIAL 100 MCG/2 ML VIAL ONE
[2021-06-13] MEDS ORDERED: BUPIVACAINE MPF 0.25% 30 ML VIAL. ONE (08:24)
[2021-06-13] MEDS ORDERED: methylPREDNISolone ACETATE 80 MG/ML VIAL. ONE (08:24)
[2021-06-13 08:58] VITALS: BP 117/76
[2021-06-13] MEDS ORDERED: TRIAMCINOLONE ACET/PF OPHTH 40 MG/ML VIAL. IO ONE (09:28)
[2021-06-13] MEDS ORDERED: PHENYLEPHRINE in 0.9% NACL PF 1 MG/10 ML SYRINGE. IV ONE (09:31)
--- NOTE | 2021-06-13 09:45 | PDOC4 ---
OPERATIVE NOTE Date: Date: Jun 13, 2021 Pre-Op Diagnosis: Trigger thumb right Osteoarthritis CMC joint right thumb Post-Op Diagnosis: Same Procedure Performed: A1 mari trigger thumb release right Injection CMC joint right thumb dilute steroid Depo-Medrol Surgeon: Regina Anesthesia Type: General Blood Loss: 5 cc Specimans Obtained: None Findings: See dictation Complications: None SUZAN TRUJILLO Jr., DO Jun 13, 2021 09:44
--- NOTE | 2021-06-13 09:48 | DISCH ---
DISCHARGE INSTRUCTIONS Condition on Discharge Condition on Discharge: Stable Activity After Discharge Activity Instructions for Disc: Activity as tolerated, Avoid exertion, Prog ressive ambulation Bathing Instructions: Shower-keep dressing dry, No Tub Bath until see Lifting Instructions after Dis: No heavy lifting, No pulling or pushing, Do not lift >10 pounds Exercise Instruction after Dis: Walk 10 min, 3 x per day, Walk 15 min, 3 x per day, Walk 30 min, 3 x per week Driving Instructions after Dis: Do not drive, Do not drive today Weight Bearing Status after Di: Full weight bearing Diet after Discharge Diet after Discharge: No Added Sugar, Diabetic No Calorie Level Diet Texture: Regular Wound Incision Care Wound/Incision Care: Ice to area for comfort, Keep wound elevated, Change dressing Other wound/incision instructi: May change dressing postoperative day #3 Wound Care Equipment: Dressings Contacting the after DC Call your doctor for: Concerns you may have Follow-Up Follow up with: Dr. Trujillo in 10 to 14 days Treatment/Equipment after DC Adaptive Equipment Issued: Front wheeled walker SUZAN TRUJILLO Jr. DO Jun 13, 2021 09:48
--- NOTE | 2021-06-13 09:54 | OP ---
DATE OF SURGERY: 06/13/2021 PREOPERATIVE DIAGNOSES: Trigger thumb, right and osteoarthrosis right thumb, carpometacarpal joint. POSTOPERATIVE DIAGNOSES: Trigger thumb, right and osteoarthrosis right thumb, carpometacarpal joint. PROCEDURE: Trigger thumb release A1 mari, right thumb and injection CMC joint, right with 80 mg Depo-Medrol, 1 mL 0.25% Marcaine. SURGEON: Hakeem Tapia Jr, DO STEEL [employer]IE PRESS SET UP OPERATOR: Sohail Velazquez. ANESTHESIA: General. COMPLICATIONS: None. ESTIMATED BLOOD LOSS: 5 mL. DESCRIPTION OF PROCEDURE: The patient was taken to the operative suite, given a general anesthetic. Right upper extremity was then prepped and draped in a sterile fashion. Incision was made through skin and subcutaneous tissues in an L-type manner directly overlying the area of the A1 mari. This was carefully taken through skin and subcutaneous tissues only. Underlying tissues were retracted. The nerves and the neurovascular bundles were identified and retracted. The A1 mari was easily identified and released. There was full excursion of the thumb at the IP joint throughout the arc of motion without any abnormalities or problems. The tendon was completely intact. The wound was then thoroughly irrigated. Superficial bleeding was coagulated using a Bovie knife. This was closed in an interrupted fashion using 3-0 nylon. The injection was then placed within the CMC joint with gentle traction on the thumb and after that was injected sterile dressing was applied. The patient was then taken from the operative bed to the postoperative bed, taken to the PACU in stable condition. BA LIANG: Radha TID: [id number]
[2021-06-13 10:45] VITALS: BP 118/60
== END 2021-06-13 11:05 | disposition home or self-care (01) ==
LOC: SURG 08:17
PROVIDERS: ATTEND Orthopaedic Surgery
DX: M65.311 Trigger thumb, right thumb (principal); M18.11 Unilateral primary osteoarthritis of first carpometacarpal joint, right hand; I10 Essential (primary) hypertension; E78.00 Pure hypercholesterolemia, unspecified; J44.9 Chronic obstructive pulmonary disease, unspecified; E11.9 Type 2 diabetes mellitus without complications; E66.9 Obesity, unspecified; K21.9 Gastro-esophageal reflux disease without esophagitis; F41.9 Anxiety disorder, unspecified; F32.9 Major depressive disorder, single episode, unspecified; M19.90 Unspecified osteoarthritis, unspecified site; F17.210 Nicotine dependence, cigarettes, uncomplicated; Z86.73 Personal history of transient ischemic attack (TIA), and cerebral infarction without residual deficits; Z79.899 Other long term (current) drug therapy; Z98.890 Other specified postprocedural states; Z79.82 Long term (current) use of aspirin; Z79.84 Long term (current) use of oral hypoglycemic drugs; Z91.040 Latex allergy status; Z88.8 Allergy status to other drugs, medicaments and biological substances
CPT/HCPCS: 20600; 26055; 82962; A4930; A6402; J0690; J1100; J2370; J2405; J2704; J3010; J3301; J3490; A4657; A6452; J1040